=== PATIENT | male | born 1960 | race Caucasian/White ===

== ENCOUNTER 2019-10-15 21:13 | Observation (INO) | payer OTHER ==
[2019-10-15] MEDS ORDERED: Ondansetron 4 MG Tab.DIS PO ONE (21:27)
[2019-10-15] MEDS ORDERED: Acetaminophen/HYDROcodone 325-5 MG Tab PO ONE (21:28)
--- NOTE | 2019-10-15 21:44 | EDM.PDOC ---
Addendum entered and electronically signed by Hair Solano MD 10/16/19 03:02: Unable to control the pain in the emergency room. Patient is received IV hydration 6 of morphine and Toradol without relief. I discussed the case with the admitting physician Dr. Encarnacion Addendum entered and electronically signed by Hair Solano MD 10/16/19 03:01: Original Note: <Hair Solano - Last Filed: 10/16/19 00:57> ED HPI GENERAL MEDICAL PROBLEM - General Chief Complaint: Abdominal Pain Stated Complaint: BLADDER PROBLEM Time Seen by Provider: 10/15/19 21:17 - Related Data Allergies Allergy/AdvReac Type Severity Reaction Status Date / Time Sulfa (Sulfonamide Allergy Hives Verified 10/16/19 03:47 Antibiotics) tetracycline Allergy Other Verified 10/16/19 03:47 Home Meds: Home Meds atorvaSTATin [Lipitor] 20 mg PO BEDTIME 10/15/19 [History] traZODone HCl [Trazodone HCl] 50 mg PO BEDTIME 10/15/19 [History] Citalopram Hydrobromide [Celexa] 40 mg PO DAILY 10/16/19 [History] Methylphenidate HCl [Ritalin LA] 20 mg PO DAILY 10/16/19 [History] ED ROS GENERAL - Review of Systems Review Of Systems: See Below Constitutional: Reports: No Symptoms HEENT: Reports: No Symptoms Respiratory: Reports: No Symptoms Cardiovascular: Reports: No Symptoms Endocrine: Reports: No Symptoms GI/Abdominal: Reports: Abdominal Pain : Reports: No Symptoms Musculoskeletal: Reports: No Symptoms Skin: Reports: No Symptoms Neurological: Reports: No Symptoms Psychiatric: Reports: No Symptoms Hematologic/Lymphatic: Reports: No Symptoms Immunologic: Reports: No Symptoms ED EXAM, GI/ABD - Physical Exam Exam: See Below Exam Limited By: No Limitations General Appearance: Alert, WD/WN, Mild Distress Eyes: Bilateral: Normal Appearance Ears: Normal External Exam Nose: Normal Inspection, Normal Mucosa Throat/Mouth: Normal Inspection, Normal Lips Head: Atraumatic, Normocephalic Neck: Normal Inspection, Supple Respiratory/Chest: No Respiratory Distress Cardiovascular: Normal Peripheral Pulses, Regular Rate, Rhythm GI/Abdominal Exam: Normal Bowel Sounds, No Abnormal Bruit, No Mass, Tender (Male) Exam: Deferred Rectal (Males) Exam: Deferred Back Exam: Normal Inspection, Full Range of Motion Extremities: Normal Inspection, Normal Range of Motion Neurological: Alert, Oriented, CN II-XII Intact, Normal Cognition, No Motor/ Sensory Deficits Psychiatric: Normal Affect, Normal Mood Skin Exam: Warm, Dry, Intact, Normal Color Lymphatic: No Adenopathy Course - Vital Signs Text/Narrative:: Presents the emergency room with right upper quadrant pain. Patient has a history of gallbladder disease. Patient states is been hurting for 2 days with some nausea. Patient will found to have a white count of 13,000. Patient CT scan shows diverticulosis. Patient has no evidence on CT scan of gallbladder blockage. No evidence of appendicitis. Probable biliary colic Patient will be discharged home to follow-up with his surgeon Last Recorded V/S: Last Vital Signs Temp 97.9 F 10/16/19 04:03 Pulse 64 10/16/19 04:03 Resp 17 10/16/19 04:03 BP 127/64 10/16/19 04:03 Pulse Ox 98 10/16/19 04:03 - Orders/Labs/Meds Orders: Medication Orders Sodium Chloride (Normal Saline) 1,000 mls @ 125 mls/hr IV ASDIRECTED JOSEPHINE Last Admin: 10/16/19 04:54 Dose: 125 mls/hr Morphine Sulfate (Morphine) 2 mg IVPUSH Q3H PRN PRN Reason: Pain Last Admin: 10/16/19 07:24 Dose: 2 mg Ondansetron HCl (Zofran) 4 mg IVPUSH Q4H PRN PRN Reason: Nausea/Vomiting Labs: Laboratory Tests 10/15/19 10/15/19 10/15/19 Range/Units 21:28 21:40 21:40 WBC 13.47 H (4.0-11.0) K/uL RBC 4.64 (4.50-5.90) M/uL Hgb 15.3 (13.0-17.0) g/dL Hct 43.6 (38.0-50.0) % MCV 94.0 (80.0-98.0) fL MCH 33.0 H (27.0-32.0) pg MCHC 35.1 (31.0-37.0) g/dL RDW Std Deviation 44.0 (28.0-62.0) fl RDW Coeff of Miguel 13 (11.0-15.0) % Plt Count 291 (150-400) K/uL MPV 8.20 (7.40-12.00) fL Neut % (Auto) 53.6 (48.0-80.0) % Lymph % (Auto) 34.6 (16.0-40.0) % [place] % (Auto) 9.2 (0.0-15.0) % Eos % (Auto) 2.4 (0.0-7.0) % Baso % (Auto) 0.2 (0.0-1.5) % Neut # (Auto) 7.2 H (1.4-5.7) K/uL Lymph # (Auto) 4.7 H (0.6-2.4) K/uL [place] # (Auto) 1.2 H (0.0-0.8) K/uL Eos # (Auto) 0.3 (0.0-0.7) K/uL Baso # (Auto) 0.0 (0.0-0.1) K/uL Nucleated RBC % 0.0 /100WBC Nucleated RBCs # 0 K/uL Sodium 144 (136-148) mmol/L Potassium 4.0 (3.5-5.1) mmol/L Chloride 106 (98-107) mmol/L Carbon Dioxide 27.0 (21.0-32.0) mmol/L BUN 15 (7.0-18.0) mg/dL Creatinine 1.1 (0.8-1.3) mg/dL Est Cr Clr Drug Dosing 78.91 mL/min Estimated GFR (MDRD) > 60.0 ml/min Glucose 116 H (74-106) mg/dL Calcium 8.9 (8.5-10.1) mg/dL Total Bilirubin 0.4 (0.2-1.0) mg/dL AST 24 (15-37) IU/L ALT 38 (14-63) IU/L Alkaline Phosphatase 70 (46-116) U/L Total Protein 6.9 (6.4-8.2) g/dL Albumin 4.0 (3.4-5.0) g/dL Globulin 2.9 (2.6-4.0) g/dL Albumin/Globulin Ratio 1.4 (0.9-1.6) Lipase 371 (73-393) U/L Urine Color YELLOW Urine Appearance CLEAR Urine pH 6.5 (5.0-8.0) Ur Specific [place] 1.015 (1.001-1.035) Urine Protein NEGATIVE (NEGATIVE) mg/dL Urine Glucose (UA) NEGATIVE (NEGATIVE) mg/dL Urine Ketones NEGATIVE (NEGATIVE) mg/dL Urine Occult Blood NEGATIVE (NEGATIVE) Urine Nitrite NEGATIVE (NEGATIVE) Urine Bilirubin NEGATIVE (NEGATIVE) Urine Urobilinogen 0.2 (<2.0) EU/dL Ur Leukocyte Esterase NEGATIVE (NEGATIVE) Meds: Medications Generic Name Dose Route Start Last Admin Trade Name Freq PRN Reason Stop Dose Admin Sodium Chloride 1,000 mls @ 125 mls/hr 10/16/19 04:45 10/16/19 04:54 Normal Saline IV 125 mls/hr ASDIRECTED JOSEPHINE Administration Morphine Sulfate 2 mg 10/16/19 04:33 10/16/19 07:24 Morphine IVPUSH 2 mg Q3H PRN Administration Pain Ondansetron HCl 4 mg 10/16/19 04:33 Zofran IVPUSH Q4H PRN Nausea/Vomiting Discontinued Medications Generic Name Dose Route Start Last Admin Trade Name Freq PRN Reason Stop Dose Admin Hydrocodone Bitart/Acetaminophen 1 tab 10/15/19 21:28 10/15/19 21:43 [place] 325-5 Mg PO 10/15/19 21:29 1 tab ONETIME ONE Administration Sodium Chloride 1,000 mls @ 999 mls/hr 10/15/19 21:55 10/15/19 22:25 Normal Saline IV 10/15/19 22:55 999 mls/hr STAT ONE Administration Metronidazole 500 mg/ Premix 100 mls @ 100 mls/hr 10/15/19 23:35 10/15/19 23: 40 IV 10/16/19 00:34 100 mls/hr ONETIME ONE Administration Iopamidol 100 ml 10/15/19 22:32 10/15/19 22:46 [id number] (76%) IVPUSH 10/15/19 22:33 100 ml ONETIME STA Administration Ketorolac Tromethamine 30 mg 10/16/19 01:29 10/16/19 01:42 Toradol IVPUSH 10/16/19 01:30 30 mg ONETIME ONE Administration Morphine Sulfate 6 mg 10/15/19 23:25 10/15/19 23:35 Morphine IVPUSH 10/15/19 23:26 6 mg ONETIME ONE Administration Morphine Sulfate 6 mg 10/16/19 03:03 10/16/19 03:14 Morphine IVPUSH 10/16/19 03:04 6 mg ONETIME ONE Administration Nicotine 21 mg 10/16/19 02:51 10/16/19 03:11 Habitrol TRDERM 10/16/19 02:52 21 mg ONETIME ONE Administration Ondansetron HCl 4 mg 10/15/19 21:27 10/15/19 21:44 Zofran Odt PO 10/15/19 21:28 4 mg ONETIME ONE Administration Ondansetron HCl 4 mg 10/15/19 23:28 10/15/19 23:35 Zofran IVPUSH 10/15/19 23:29 4 mg ONETIME ONE Administration Departure - Departure Time of Disposition: 01:00 Disposition: Refer to Observation Condition: Good Clinical Impression: Biliary colic symptom - Discharge Information Sepsis Event Note - Focused Exam Vital Signs: Vital Signs Pulse Resp BP Pulse Ox 10/16/19 01:43 78 16 121/68 96 10/16/19 00:45 78 18 129/78 99 10/15/19 23:36 87 16 132/76 96 Date Exam was Performed: 10/16/19 Time Exam was Performed: 00:57 <Macario Hopper E - Last Filed: 10/16/19 10:09> ED HPI GENERAL MEDICAL PROBLEM - General Source of Information: Reports: Patient History Limitations: Reports: No Limitations - History of Present Illness INITIAL COMMENTS - FREE TEXT/NARRATIVE: HISTORY AND PHYSICAL: History of present illness: Patient is a 59-year-old male who presents to the emergency room with complaints of "gallbladder pain". He states around Fab[place] of this last year he was told that he needed his gallbladder removed. He has failed to set up an outpatient appointment with the general surgeon. He states this afternoon he had eaten something that caused him to have pain to his right upper quadrant. He does have some mild nausea associated with this, no vomiting. Patient denies any fever, chills, headache, change in vision, syncope or near syncope. Denies any chest pain, back pain, shortness of breath or cough. Denies any abdominal pain, nausea, vomiting, diarrhea, constipation or dysuria. Has not noted any blood in urine or stool. Patient has been eating and drinking appropriately. Review of systems: As per history of present illness and below otherwise all systems reviewed and negative. Past medical history: As per history of present illness and as reviewed below otherwise noncontributory. Surgical history: As per history of present illness and as reviewed below otherwise noncontributory. Social history: See social history for further information Family history: As per history of present illness and as reviewed below otherwise noncontributory. Physical exam: General: Well developed and well nourished 59-year-old male. Alert and oriented. Nontoxic-appearing and in no acute distress. HEENT: Atraumatic, normocephalic, pupils equal and reactive bilaterally, negative for conjunctival pallor or scleral icterus, mucous membranes moist, trachea midline. No drooling or trismus noted. No meningeal signs. No hot potato voice noted. Lungs: Clear to auscultation, breath sounds equal bilaterally, chest nontender. Heart: S1S2, regular rate and rhythm without overt murmur Abdomen: Soft, nondistended, right upper quadrant tenderness. Negative for masses or hepatosplenomegaly. Negative for costovertebral tenderness. Skin: Intact, warm, dry. No lesions or rashes noted. Extremities: Atraumatic, moves all extremities per self without difficulty or deficits, negative for cords or calf pain. Neurovascular unremarkable. Neuro: Awake, alert, oriented. Cranial nerves II through XII unremarkable. Cerebellum unremarkable. Motor and sensory unremarkable throughout. Exam nonfocal. Notes: Diagnostics have not returned. Dr Solano has agreed to accept this patient to follow his labs and disposition patient appropriately. Diagnostics: CBC, CMP, Lipase, UA, CT abd/pelvis Therapeutics: IV fluids, [place], Zofran Impression: Bilary colic Definitive disposition and diagnosis as appropriate pending reevaluation and review of above. RUQ Pain Score (Numeric/FACES): 8 Course - Orders/Labs/Meds Labs: Laboratory Tests 10/15/19 10/15/19 10/15/19 Range/Units 21:28 21:40 21:40 WBC 13.47 H (4.0-11.0) K/uL RBC 4.64 (4.50-5.90) M/uL Hgb 15.3 (13.0-17.0) g/dL Hct 43.6 (38.0-50.0) % MCV 94.0 (80.0-98.0) fL MCH 33.0 H (27.0-32.0) pg MCHC 35.1 (31.0-37.0) g/dL RDW Std Deviation 44.0 (28.0-62.0) fl RDW Coeff of Miguel 13 (11.0-15.0) % Plt Count 291 (150-400) K/uL MPV 8.20 (7.40-12.00) fL Neut % (Auto) 53.6 (48.0-80.0) % Lymph % (Auto) 34.6 (16.0-40.0) % [place] % (Auto) 9.2 (0.0-15.0) % Eos % (Auto) 2.4 (0.0-7.0) % Baso % (Auto) 0.2 (0.0-1.5) % Neut # (Auto) 7.2 H (1.4-5.7) K/uL Lymph # (Auto) 4.7 H (0.6-2.4) K/uL [place] # (Auto) 1.2 H (0.0-0.8) K/uL Eos # (Auto) 0.3 (0.0-0.7) K/uL Baso # (Auto) 0.0 (0.0-0.1) K/uL Nucleated RBC % 0.0 /100WBC Nucleated RBCs # 0 K/uL Sodium 144 (136-148) mmol/L Potassium 4.0 (3.5-5.1) mmol/L Chloride 106 (98-107) mmol/L Carbon Dioxide 27.0 (21.0-32.0) mmol/L BUN 15 (7.0-18.0) mg/dL Creatinine 1.1 (0.8-1.3) mg/dL Est Cr Clr Drug Dosing 78.91 mL/min Estimated GFR (MDRD) > 60.0 ml/min Glucose 116 H (74-106) mg/dL Calcium 8.9 (8.5-10.1) mg/dL Total Bilirubin 0.4 (0.2-1.0) mg/dL AST 24 (15-37) IU/L ALT 38 (14-63) IU/L Alkaline Phosphatase 70 (46-116) U/L Total Protein 6.9 (6.4-8.2) g/dL Albumin 4.0 (3.4-5.0) g/dL Globulin 2.9 (2.6-4.0) g/dL Albumin/Globulin Ratio 1.4 (0.9-1.6) Lipase 371 (73-393) U/L Urine Color YELLOW Urine Appearance CLEAR Urine pH 6.5 (5.0-8.0) Ur Specific [place] 1.015 (1.001-1.035) Urine Protein NEGATIVE (NEGATIVE) mg/dL Urine Glucose (UA) NEGATIVE (NEGATIVE) mg/dL Urine Ketones NEGATIVE (NEGATIVE) mg/dL Urine Occult Blood NEGATIVE (NEGATIVE) Urine Nitrite NEGATIVE (NEGATIVE) Urine Bilirubin NEGATIVE (NEGATIVE) Urine Urobilinogen 0.2 (<2.0) EU/dL Ur Leukocyte Esterase NEGATIVE (NEGATIVE) Meds: Medications Generic Name Dose Route Start Last Admin Trade Name Margaritoq PRN Reason Stop Dose Admin Sodium Chloride 1,000 mls @ 125 mls/hr 10/16/19 04:45 10/16/19 04:54 Normal Saline IV 125 mls/hr ASDIRECTED JOSEPHINE Administration Morphine Sulfate 2 mg 10/16/19 04:33 10/16/19 07:24 Morphine IVPUSH 2 mg Q3H PRN Administration Pain Ondansetron HCl 4 mg 10/16/19 04:33 Zofran IVPUSH Q4H PRN Nausea/Vomiting Discontinued Medications Generic Name Dose Route Start Last Admin Trade Name Titus PRN Reason Stop Dose Admin Hydrocodone Bitart/Acetaminophen 1 tab 10/15/19 21:28 10/15/19 21:43 [place] 325-5 Mg PO 10/15/19 21:29 1 tab ONETIME ONE Administration Sodium Chloride 1,000 mls @ 999 mls/hr 10/15/19 21:55 10/15/19 22:25 Normal Saline IV 10/15/19 22:55 999 mls/hr STAT ONE Administration Metronidazole 500 mg/ Premix 100 mls @ 100 mls/hr 10/15/19 23:35 10/15/19 23: 40 IV 10/16/19 00:34 100 mls/hr ONETIME ONE Administration Iopamidol 100 ml 10/15/19 22:32 10/15/19 22:46 Isovue-370 (76%) IVPUSH 10/15/19 22:33 100 ml ONETIME STA Administration Ketorolac Tromethamine 30 mg 10/16/19 01:29 10/16/19 01:42 Toradol IVPUSH 10/16/19 01:30 30 mg ONETIME ONE Administration Morphine Sulfate 6 mg 10/15/19 23:25 10/15/19 23:35 Morphine IVPUSH 10/15/19 23:26 6 mg ONETIME ONE Administration Morphine Sulfate 6 mg 10/16/19 03:03 10/16/19 03:14 Morphine IVPUSH 10/16/19 03:04 6 mg ONETIME ONE Administration Nicotine 21 mg 10/16/19 02:51 10/16/19 03:11 Habitrol TRDERM 10/16/19 02:52 21 mg ONETIME ONE Administration Ondansetron HCl 4 mg 10/15/19 21:27 10/15/19 21:44 Zofran Odt PO 10/15/19 21:28 4 mg ONETIME ONE Administration Ondansetron HCl 4 mg 10/15/19 23:28 10/15/19 23:35 Zofran IVPUSH 10/15/19 23:29 4 mg ONETIME ONE Administration Sepsis Event Note - Evaluation Sepsis Screening Result: No Definite Risk - Focused Exam Date Exam was Performed: 10/16/19 Time Exam was Performed: 10:07
[2019-10-15] MEDS ORDERED: Sodium Chloride 0.9% 1,000 ML IV ONE (21:55)
[2019-10-15 22:15] LABS: BLOOD UREA NITROGEN,BUN 15 mg/dL (7.0-18.0); CHLORIDE,CL 106 mmol/L (98-107); GLUCOSE RANDOM 116 mg/dL (74-106); LIPASE 371 U/L (73-393); SODIUM,NA 144 mmol/L (136-148)
[2019-10-15] MEDS ORDERED: Iopamidol 755 Mg/ML 100 ML Bottle IVPUSH STA (22:32)
--- NOTE | 2019-10-15 23:11 | CT ---
HISTORY: Right upper quadrant pain. TECHNIQUE: CT abdomen and pelvis with IV contrast. COMPARISON: None. FINDINGS: Abdomen: No liver lesions. No bile duct dilation. Gallbladder is mostly collapsed. No pancreatic mass or pancreatic duct dilation. No spleen lesions. No adrenal nodules. Kidneys enhance symmetrically. 3.5 cm right renal cyst. No hydronephrosis. No dilated bowel. Colonic diverticulosis. No pericolonic inflammatory change. Appendix is normal. No free fluid. No lymphadenopathy. Moderate atherosclerosis. Celiac, SMA, SCARLETT, and renal arteries are patent. Abdominal aorta is normal caliber. Pelvis: No lymphadenopathy. Musculoskeletal: Degenerative changes of the spine greatest at L5-S1. Lower chest: Unremarkable. IMPRESSION: 1. No acute abnormality in the abdomen or pelvis. 2. Colonic diverticulosis without acute diverticulitis. Please note that all CT scans at this facility use dose modulation, iterative reconstruction, and/or weight-based dosing when appropriate to reduce radiation dose to as low as reasonably achievable. Dictated by Serge Hughes MD @ Oct 15 2019 11:02PM Signed by Dr. Serge Hughes @ Oct 15 2019 11:10PM
[2019-10-15] MEDS ORDERED: Morphine 10 MG/ML Syringe IVPUSH ONE (23:25)
[2019-10-15] MEDS ORDERED: Ondansetron 4 MG/2 ML SDV IVPUSH ONE (23:28)
[2019-10-15] MEDS ORDERED: metroNIDAZOLE/Normal Saline 500 MG in Premix Bag 1 BAG IV ONE (23:35)
[2019-10-16] MEDS ORDERED: Ketorolac 30 MG/ML SDV IVPUSH ONE (01:29)
[2019-10-16] MEDS ORDERED: Nicotine 21 MG/24 Hr Patch TRDERM ONE (02:51)
[2019-10-16] MEDS ORDERED: Morphine 10 MG/ML Syringe IVPUSH ONE (03:03)
[2019-10-16] MEDS: Sodium Chloride 0.9% 1,000 ML IV SCH ×3 (04:54→22:45)
[2019-10-16] MEDS: Morphine 2 MG/ML Syringe IVPUSH PRN ×4 (07:24→20:58)
[2019-10-16] MEDS ORDERED: Morphine 2 MG/ML Syringe IVPUSH PRN (10:06)
--- NOTE | 2019-10-16 10:12 | PCM.HP.2 ---
H&P History of Present Illness - General Date of Service: 10/16/19 Admit Problem/Dx: Admission Diagnosis/Problem Admission Diagnosis/Problem Abdominal pain in male - History of Present Illness Initial Comments - Free Text/Narative: 59 yo male who presents with one day history of right upper quadrant pain. He reports associate symptoms of nausea and vomiting. He denies any fevers or chills. The last time he had symptoms like this he was driving home but had to stop in [place] where it took several days to resolve. He reports following up in [facility] were he was told he had sludge in his gallbladder and was advised to have a cholecystectomy. He RUQ Pain Score (Numeric/FACES): 8 - Related Data Allergies/Adverse Reactions: Allergies Allergy/AdvReac Type Severity Reaction Status Date / Time Sulfa (Sulfonamide Allergy Hives Verified 10/16/19 03:47 Antibiotics) tetracycline Allergy Other Verified 10/16/19 03:47 Home Medications: Home Meds atorvaSTATin [Lipitor] 20 mg PO BEDTIME 10/15/19 [History] traZODone HCl [Trazodone HCl] 50 mg PO BEDTIME 10/15/19 [History] Citalopram Hydrobromide [Celexa] 40 mg PO DAILY 10/16/19 [History] Methylphenidate HCl [Ritalin LA] 20 mg PO DAILY 10/16/19 [History] Past Medical History HEENT History: Reports: None Cardiovascular History: Reports: High Cholesterol Respiratory History: Reports: None Gastrointestinal History: Reports: Hepatitis, Hiatal Hernia, Other (See Below) Other Gastrointestinal History: Gall bladder "sludge". Hepatitis C with spontaneous cured Genitourinary History: Reports: None Musculoskeletal History: Reports: None Neurological History: Reports: None Psychiatric History: Reports: ADHD, Depression, PTSD Endocrine/Metabolic History: Reports: None Hematologic History: Reports: None Immunologic History: Reports: None Oncologic (Cancer) History: Reports: None Dermatologic History: Reports: None - Infectious Disease History Infectious Disease History: Reports: Hepatitis C - Past Surgical History Head Surgeries/Procedures: Reports: None GI Surgical History: Reports: Hernia Repair/Other Social & Family History - Family History Family Medical History: Noncontributory - Tobacco Use Smoking Status *Q: Current Every Day Smoker Years of Tobacco use: 40 Packs/Tins Daily: 1.5 - Recreational Drug Use Recreational Drug Use: No H&P Review of Systems - Review of Systems: Review Of Systems: Comprehensive ROS is negative, except as noted in HPI. Exam - Exam Exam: See Below - Vital Signs Vital Signs: Last Vital Signs Temp 36.6 C 10/16/19 04:03 Pulse 64 10/16/19 04:03 Resp 17 10/16/19 04:03 BP 127/64 10/16/19 04:03 Pulse Ox 98 10/16/19 04:03 Weight: 85.7 kg - Exam General: Alert, Oriented HEENT: Mucosa Moist & [place] Neck: Supple, Trachea Midline Lungs: Clear to Auscultation, Normal Respiratory Effort Cardiovascular: Regular Rate, Regular Rhythm GI/Abdominal Exam: Normal Bowel Sounds, Soft, Non-Tender Extremities: Normal Inspection, Non-Tender, No Pedal Edema Skin: Warm, Dry, Intact - Patient Data Lab Results Last 24 hrs: Laboratory Results - last 24 hr 10/15/19 10/15/19 10/15/19 Range/Units 21:28 21:40 21:40 WBC 13.47 H (4.0-11.0) K/uL RBC 4.64 (4.50-5.90) M/uL Hgb 15.3 (13.0-17.0) g/dL Hct 43.6 (38.0-50.0) % MCV 94.0 (80.0-98.0) fL MCH 33.0 H (27.0-32.0) pg MCHC 35.1 (31.0-37.0) g/dL RDW Std Deviation 44.0 (28.0-62.0) fl RDW Coeff of Miguel 13 (11.0-15.0) % Plt Count 291 (150-400) K/uL MPV 8.20 (7.40-12.00) fL Neut % (Auto) 53.6 (48.0-80.0) % Lymph % (Auto) 34.6 (16.0-40.0) % [place] % (Auto) 9.2 (0.0-15.0) % Eos % (Auto) 2.4 (0.0-7.0) % Baso % (Auto) 0.2 (0.0-1.5) % Neut # (Auto) 7.2 H (1.4-5.7) K/uL Lymph # (Auto) 4.7 H (0.6-2.4) K/uL [place] # (Auto) 1.2 H (0.0-0.8) K/uL Eos # (Auto) 0.3 (0.0-0.7) K/uL Baso # (Auto) 0.0 (0.0-0.1) K/uL Nucleated RBC % 0.0 /100WBC Nucleated RBCs # 0 K/uL Sodium 144 (136-148) mmol/L Potassium 4.0 (3.5-5.1) mmol/L Chloride 106 (98-107) mmol/L Carbon Dioxide 27.0 (21.0-32.0) mmol/L BUN 15 (7.0-18.0) mg/dL Creatinine 1.1 (0.8-1.3) mg/dL Est Cr Clr Drug Dosing 78.91 mL/min Estimated GFR (MDRD) > 60.0 ml/min Glucose 116 H (74-106) mg/dL Calcium 8.9 (8.5-10.1) mg/dL Total Bilirubin 0.4 (0.2-1.0) mg/dL AST 24 (15-37) IU/L ALT 38 (14-63) IU/L Alkaline Phosphatase 70 (46-116) U/L Total Protein 6.9 (6.4-8.2) g/dL Albumin 4.0 (3.4-5.0) g/dL Globulin 2.9 (2.6-4.0) g/dL Albumin/Globulin Ratio 1.4 (0.9-1.6) Lipase 371 (73-393) U/L Urine Color YELLOW Urine Appearance CLEAR Urine pH 6.5 (5.0-8.0) Ur Specific [place] 1.015 (1.001-1.035) Urine Protein NEGATIVE (NEGATIVE) mg/dL Urine Glucose (UA) NEGATIVE (NEGATIVE) mg/dL Urine Ketones NEGATIVE (NEGATIVE) mg/dL Urine Occult Blood NEGATIVE (NEGATIVE) Urine Nitrite NEGATIVE (NEGATIVE) Urine Bilirubin NEGATIVE (NEGATIVE) Urine Urobilinogen 0.2 (<2.0) EU/dL Ur Leukocyte Esterase NEGATIVE (NEGATIVE) Result Diagrams: 10/16/19 13:05 10/16/19 13:05 Sepsis Event Note - Evaluation Sepsis Screening Result: No Definite Risk - Focused Exam Vital Signs: Vital Signs Temp Pulse Resp BP Pulse Ox 10/16/19 04:03 36.6 C 64 17 127/64 98 10/16/19 03:17 75 16 120/74 97 10/16/19 01:43 78 16 121/68 96 10/16/19 00:45 78 18 129/78 99 10/15/19 23:36 87 16 132/76 96 Date Exam was Performed: 10/16/19 Time Exam was Performed: 13:51 Problem List Initiated/Reviewed/Updated: Yes Orders Last 24hrs: Active Orders 24 hr Category Date Time Status Admission Status [Patient Status] [ADT] Stat ADT 10/16/19 03:04 Active Antiembolic Devices [RC] PER UNIT ROUTINE Care 10/16/19 10:07 Active Oxygen Therapy [RC] PRN Care 10/16/19 10:06 Active Up ad Kandice [RC] ASDIRECTED Care 10/16/19 10:06 Active VTE/DVT Education [RC] PER UNIT ROUTINE Care 10/16/19 10:06 Active Vital Signs [RC] Q4H Care 10/16/19 10:06 Active Clear Liquid Diet [DIET] Diet 10/16/19 Breakfast Active CBC WITH AUTO DIFF [HEME] Routine Lab 10/16/19 13:00 Ordered COMPREHENSIVE METABOLIC PN,CMP [CHEM] Routine Lab 10/16/19 13:00 Ordered Ciprofloxacin in D5W [Cipro in D5W 400 MG/200 ML] 400 Med 10/16/19 10:15 Ordered mg Premix Bag 1 bag IV Q12H Citalopram Hydrobromide [Celexa] Med 10/17/19 09:00 Ordered 40 mg PO DAILY Morphine Med 10/16/19 04:33 Active 2 mg IVPUSH Q3H PRN Morphine Med 10/16/19 10:06 Ordered 2 mg IVPUSH Q3H PRN Ondansetron [Zofran] Med 10/16/19 04:33 Active 4 mg IVPUSH Q4H PRN Sodium Chloride 0.9% [Normal Saline] 1,000 ml Med 10/16/19 04:45 Active IV ASDIRECTED atorvaSTATin [Lipitor] Med 10/16/19 21:00 Ordered 20 mg PO BEDTIME metroNIDAZOLE/Normal Saline [Flagyl 500 MG in NS 100 ML Med 10/16/19 12:00 Ordered ] 500 mg Premix Bag 1 bag IV QID oxyCODONE Med 10/16/19 10:06 Ordered 5 mg PO Q4H PRN traZODone Med 10/16/19 21:00 Ordered 50 mg PO BEDTIME Sequential Compression Device [OM.PC] Per Unit Routine Oth 10/16/19 10:06 Ordered Resuscitation Status Routine Resus Stat 10/16/19 10:06 Ordered Medication Orders Atorvastatin Calcium (Lipitor) 20 mg PO BEDTIME JOSEPHINE Sodium Chloride (Normal Saline) 1,000 mls @ 125 mls/hr IV ASDIRECTED [facility] Last Admin: 10/16/19 04:54 Dose: 125 mls/hr Ciprofloxacin/Dextrose 400 mg/ (Premix) 200 mls @ 200 mls/hr IV Q12H [facility] Metronidazole 500 mg/ Premix 100 mls @ 100 mls/hr IV QID [facility] Morphine Sulfate (Morphine) 2 mg IVPUSH Q3H PRN PRN Reason: Pain Last Admin: 10/16/19 07:24 Dose: 2 mg Morphine Sulfate (Morphine) 2 mg IVPUSH Q3H PRN PRN Reason: Pain (severe 7-10) Stop: 10/17/19 10:06 Non-Formulary Medication (Citalopram Hydrobromide [Celexa]) 40 mg PO DAILY [facility] Ondansetron HCl (Zofran) 4 mg IVPUSH Q4H PRN PRN Reason: Nausea/Vomiting Oxycodone HCl (Oxycodone) 5 mg PO Q4H PRN PRN Reason: Pain (moderate 4-6) Trazodone HCl (Trazodone) 50 mg PO BEDTIME [facility] Assessment/Plan Comment:: 59 yo male admitted for RUQ quadrant pain, concerning for possible acute cholecystitis. CT scan of abdomen is normal. We will check RUQ abdominal ultrasound and treat with Ciprofloxacin and Flagyl.
[2019-10-16] MEDS: Ciprofloxacin in D5W 400 MG in Premix Bag 1 BAG IV SCH ×4 (10:38→22:35)
[2019-10-16] MEDS: Ondansetron 4 MG/2 ML SDV IVPUSH PRN (10:38)
[2019-10-16] MEDS: metroNIDAZOLE/Normal Saline 500 MG in Premix Bag 1 BAG IV SCH ×2 (12:14→18:30)
[2019-10-16] MEDS: oxyCODONE 5 MG Tab PO PRN ×3 (12:20→22:42)
[2019-10-16 13:38] LABS: BLOOD UREA NITROGEN,BUN 16 mg/dL (7.0-18.0); CARBON DIOXIDE,CO2 25.8 mmol/L (21.0-32.0); CHLORIDE,CL 107 mmol/L (98-107); GLUCOSE RANDOM 144 mg/dL (74-106); POTASSIUM,K 3.7 mmol/L (3.5-5.1); SODIUM,NA 140 mmol/L (136-148)
[2019-10-16] MEDS: atorvaSTATin 20 MG Tab PO SCH (20:57)
[2019-10-16] MEDS: traZODone 50 MG Tab PO SCH (20:57)
[2019-10-17] MEDS: metroNIDAZOLE/Normal Saline 500 MG in Premix Bag 1 BAG IV SCH ×4 (00:19→19:03)
[2019-10-17] MEDS: oxyCODONE 5 MG Tab PO PRN ×4 (05:38→20:15)
[2019-10-17 06:05] LABS: BLOOD UREA NITROGEN,BUN 11 mg/dL (7.0-18.0); CARBON DIOXIDE,CO2 29.5 mmol/L (21.0-32.0); CHLORIDE,CL 111 mmol/L (98-107); GLUCOSE RANDOM 85 mg/dL (74-106); POTASSIUM,K 4.6 mmol/L (3.5-5.1); SODIUM,NA 145 mmol/L (136-148)
[2019-10-17] MEDS: Citalopram 20 MG Tab PO SCH (09:11)
[2019-10-17] MEDS: Sodium Chloride 0.9% 1,000 ML IV SCH ×2 (09:38→20:17)
[2019-10-17] MEDS: Ciprofloxacin in D5W 400 MG in Premix Bag 1 BAG IV SCH ×4 (10:45→22:15)
--- NOTE | 2019-10-17 11:23 | US ---
Limited abdominal ultrasound: Multiple real-time images of the upper right abdomen were obtained. Comparison: Prior CT abdomen and pelvis exam of 10/15/19. Findings: Liver shows no focal parenchymal abnormality. Cyst is noted within the mid to upper right kidney is seen measuring 3.6 cm which is noted on prior CT exam. Small abnormality is noted within the gallbladder measuring 7 mm either due to adherent sludge ball or polyp. No shadowing cholelithiasis is seen within the gallbladder. No gallbladder wall thickening or biliary duct dilatation is seen. Visualized portions of the pancreas appear within normal limits. Right kidney shows no hydronephrosis. Right kidney has a length of 13.8 cm. Impression: 1. 7 mm finding within the gallbladder either due to adherent sludge ball or gallbladder polyp. 2. Cyst within the mid to upper right kidney. 3. Other portions of the right upper quadrant abdominal ultrasound appear unremarkable. Diagnostic code #2 This report was dictated in [place] Standard Time
[2019-10-17] MEDS: Ondansetron 4 MG/2 ML SDV IVPUSH PRN (11:33)
[2019-10-17] MEDS: Morphine 2 MG/ML Syringe IVPUSH PRN ×3 (12:35→22:02)
--- NOTE | 2019-10-17 12:55 | PCM.PN ---
- General Info Date of Service: 10/17/19 Admission Dx/Problem (Free Text): Admission Diagnosis/Problem Admission Diagnosis/Problem Abdominal pain in male Subjective Update: Continues to have RUQ pain, 5/10 this morning. No ches tpain or SOB. No nausea. Awaiting RUQ US results. Asking to eat more if possible Functional Status: Reports: Ambulating, Urinating. Denies: Pain Controlled - Review of Systems General: Reports: No Symptoms HEENT: Reports: No Symptoms Pulmonary: Reports: No Symptoms. Denies: Shortness of Breath Cardiovascular: Reports: No Symptoms. Denies: Chest Pain Gastrointestinal: Reports: Abdominal Pain (RUQ). Denies: Nausea, Vomiting Genitourinary: Reports: No Symptoms. Denies: Dysuria Neurological: Reports: No Symptoms Psychiatric: Reports: No Symptoms - Patient Data Vitals - Most Recent: Last Vital Signs Temp 97.6 F 10/17/19 08:00 Pulse 64 10/17/19 08:00 Resp 18 10/17/19 08:00 BP 115/65 10/17/19 08:00 Pulse Ox 96 10/17/19 10:06 Weight - Most Recent: 85.7 kg I&O - Last 24 Hours: Intake & Output 10/16/19 10/17/19 10/17/19 22:59 06:59 14:59 Intake Total 1372 2847 Output Total 1575 Balance 1372 1272 Lab Results Last 24 Hours: Laboratory Results - last 24 hr 10/16/19 10/16/19 10/17/19 Range/Units 13:05 13:05 05:30 WBC 13.29 H 7.94 (4.0-11.0) K/uL RBC 4.28 L 4.36 L (4.50-5.90) M/uL Hgb 13.8 14.0 (13.0-17.0) g/dL Hct 39.8 41.4 (38.0-50.0) % MCV 93.0 95.0 (80.0-98.0) fL MCH 32.2 H 32.1 H (27.0-32.0) pg MCHC 34.7 33.8 (31.0-37.0) g/dL RDW Std Deviation 42.1 44.4 (28.0-62.0) fl RDW Coeff of Miguel 13 13 (11.0-15.0) % Plt Count 242 222 (150-400) K/uL MPV 8.10 8.00 (7.40-12.00) fL Neut % (Auto) 75.0 48.1 (48.0-80.0) % Lymph % (Auto) 18.7 41.8 H (16.0-40.0) % [place] % (Auto) 5.4 7.4 (0.0-15.0) % Eos % (Auto) 0.8 2.4 (0.0-7.0) % Baso % (Auto) 0.1 0.3 (0.0-1.5) % Neut # (Auto) 10.0 H 3.8 (1.4-5.7) K/uL Lymph # (Auto) 2.5 H 3.3 H (0.6-2.4) K/uL [place] # (Auto) 0.7 0.6 (0.0-0.8) K/uL Eos # (Auto) 0.1 0.2 (0.0-0.7) K/uL Baso # (Auto) 0.0 0.0 (0.0-0.1) K/uL Nucleated RBC % 0.0 0.0 /100WBC Nucleated RBCs # 0 0 K/uL Sodium 140 (136-148) mmol/L Potassium 3.7 (3.5-5.1) mmol/L Chloride 107 (98-107) mmol/L Carbon Dioxide 25.8 (21.0-32.0) mmol/L BUN 16 (7.0-18.0) mg/dL Creatinine 0.9 (0.8-1.3) mg/dL Est Cr Clr Drug Dosing 96.45 mL/min Estimated GFR (MDRD) > 60.0 ml/min Glucose 144 H (74-106) mg/dL Calcium 8.5 (8.5-10.1) mg/dL Total Bilirubin 0.4 (0.2-1.0) mg/dL AST 16 (15-37) IU/L ALT 31 (14-63) IU/L Alkaline Phosphatase 61 (46-116) U/L Total Protein 5.9 L (6.4-8.2) g/dL Albumin 3.3 L (3.4-5.0) g/dL Globulin 2.6 (2.6-4.0) g/dL Albumin/Globulin Ratio 1.3 (0.9-1.6) 10/17/19 Range/Units 05:30 WBC (4.0-11.0) K/uL RBC (4.50-5.90) M/uL Hgb (13.0-17.0) g/dL Hct (38.0-50.0) % MCV (80.0-98.0) fL MCH (27.0-32.0) pg MCHC (31.0-37.0) g/dL RDW Std Deviation (28.0-62.0) fl RDW Coeff of Miguel (11.0-15.0) % Plt Count (150-400) K/uL MPV (7.40-12.00) fL Neut % (Auto) (48.0-80.0) % Lymph % (Auto) (16.0-40.0) % [place] % (Auto) (0.0-15.0) % Eos % (Auto) (0.0-7.0) % Baso % (Auto) (0.0-1.5) % Neut # (Auto) (1.4-5.7) K/uL Lymph # (Auto) (0.6-2.4) K/uL [place] # (Auto) (0.0-0.8) K/uL Eos # (Auto) (0.0-0.7) K/uL Baso # (Auto) (0.0-0.1) K/uL Nucleated RBC % /100WBC Nucleated RBCs # K/uL Sodium 145 (136-148) mmol/L Potassium 4.6 (3.5-5.1) mmol/L Chloride 111 H (98-107) mmol/L Carbon Dioxide 29.5 (21.0-32.0) mmol/L BUN 11 (7.0-18.0) mg/dL Creatinine 1.0 (0.8-1.3) mg/dL Est Cr Clr Drug Dosing 86.80 mL/min Estimated GFR (MDRD) > 60.0 ml/min Glucose 85 (74-106) mg/dL Calcium 8.0 L (8.5-10.1) mg/dL Total Bilirubin 0.5 (0.2-1.0) mg/dL AST 16 (15-37) IU/L ALT 33 (14-63) IU/L Alkaline Phosphatase 56 (46-116) U/L Total Protein 5.4 L (6.4-8.2) g/dL Albumin 2.9 L (3.4-5.0) g/dL Globulin 2.5 L (2.6-4.0) g/dL Albumin/Globulin Ratio 1.2 (0.9-1.6) Med Orders - Current: Current Medications Atorvastatin Calcium (Lipitor) 20 mg PO BEDTIME [facility] Last Admin: 10/16/19 20:57 Dose: 20 mg Citalopram Hydrobromide (Celexa) 40 mg PO DAILY [facility] Last Admin: 10/17/19 09:11 Dose: 40 mg Sodium Chloride (Normal Saline) 1,000 mls @ 125 mls/hr IV ASDIRECTED [facility] Last Admin: 10/17/19 09:38 Dose: 125 mls/hr Ciprofloxacin/Dextrose 400 mg/ (Premix) 200 mls @ 200 mls/hr IV Q12H [facility] Last Admin: 10/17/19 10:45 Dose: 200 mls/hr Metronidazole 500 mg/ Premix 100 mls @ 100 mls/hr IV QID [facility] Last Admin: 10/17/19 12:37 Dose: 100 mls/hr Morphine Sulfate (Morphine) 2 mg IVPUSH Q3H PRN PRN Reason: Pain Last Admin: 10/17/19 12:35 Dose: 2 mg Ondansetron HCl (Zofran) 4 mg IVPUSH Q4H PRN PRN Reason: Nausea/Vomiting Last Admin: 10/17/19 11:33 Dose: 4 mg Oxycodone HCl (Oxycodone) 5 mg PO Q4H PRN PRN Reason: Pain (moderate 4-6) Last Admin: 10/17/19 09:10 Dose: 5 mg Trazodone HCl (Trazodone) 50 mg PO BEDTIME [facility] Last Admin: 10/16/19 20:57 Dose: 50 mg Discontinued Medications Hydrocodone Bitart/Acetaminophen ([place] 325-5 Mg) 1 tab PO ONETIME ONE Stop: 10/15/19 21:29 Last Admin: 10/15/19 21:43 Dose: 1 tab Sodium Chloride (Normal Saline) 1,000 mls @ 999 mls/hr IV STAT ONE Stop: 10/15/19 22:55 Last Admin: 10/15/19 22:25 Dose: 999 mls/hr Metronidazole 500 mg/ Premix 100 mls @ 100 mls/hr IV ONETIME ONE Stop: 10/16/19 00:34 Last Admin: 10/15/19 23:40 Dose: 100 mls/hr Iopamidol (Isovue-370 (76%)) 100 ml IVPUSH ONETIME STA Stop: 10/15/19 22:33 Last Admin: 10/15/19 22:46 Dose: 100 ml Ketorolac Tromethamine (Toradol) 30 mg IVPUSH ONETIME ONE Stop: 10/16/19 01:30 Last Admin: 10/16/19 01:42 Dose: 30 mg Morphine Sulfate (Morphine) 6 mg IVPUSH ONETIME ONE Stop: 10/15/19 23:26 Last Admin: 10/15/19 23:35 Dose: 6 mg Morphine Sulfate (Morphine) 6 mg IVPUSH ONETIME ONE Stop: 10/16/19 03:04 Last Admin: 10/16/19 03:14 Dose: 6 mg Morphine Sulfate (Morphine) 2 mg IVPUSH Q3H PRN PRN Reason: Pain (severe 7-10) Stop: 10/17/19 10:06 Nicotine (Habitrol) 21 mg TRDERM ONETIME ONE Stop: 10/16/19 02:52 Last Admin: 10/16/19 03:11 Dose: 21 mg Ondansetron HCl (Zofran Odt) 4 mg PO ONETIME ONE Stop: 10/15/19 21:28 Last Admin: 10/15/19 21:44 Dose: 4 mg Ondansetron HCl (Zofran) 4 mg IVPUSH ONETIME ONE Stop: 10/15/19 23:29 Last Admin: 10/15/19 23:35 Dose: 4 mg - Exam General: Alert, Oriented, Cooperative Lungs: Clear to Auscultation, Normal Respiratory Effort Cardiovascular: Regular Rate, Regular Rhythm GI/Abdominal Exam: Normal Bowel Sounds, Soft, Tender (RUQ) Extremities: Normal Inspection, Normal Range of Motion, Non-Tender, No Pedal Edema Neurological: No New Focal Deficit, Cranial Nerves Intact Psy/Mental Status: Alert, Normal Affect, Normal Mood Sepsis Event Note - Evaluation Sepsis Screening Result: No Definite Risk - Focused Exam Vital Signs: Vital Signs Temp Pulse Resp BP Pulse Ox Pulse Ox 10/17/19 10:06 96 10/17/19 08:00 97.6 F 64 18 115/65 94 L 10/17/19 03:58 97.5 F 62 18 108/68 96 Date Exam was Performed: 10/17/19 Time Exam was Performed: 12:46 - Problem List & Annotations (1) Biliary colic symptom SNOMED Code(s): 28031643 Code(s): K80.50 - CALCULUS OF BILE DUCT W/O CHOLANGITIS OR CHOLECYST W/O OBST Status: Acute Current Visit: Yes - Problem List Review Problem List Initiated/Reviewed/Updated: Yes - My Orders Last 24 Hours: My Active Orders 10/17/19 11:31 Notify Provider Consults [RC] ASDIRECTED Consult to Physician [CONS] Routine - Plan Plan:: 59 yo male admitted for RUQ quadrant pain, concerning for possible acute cholecystitis. 1. RUQ pain, suspected biliary colic or dyspkinesia - CT scan of abdomen is normal - RUQ abdominal ultrasound reveals sludge or polyp - Continue Ciprofloxacin and Flagyl IV, leukocytosis resolved this morning - Dr Muñoz consulted, plan for surgery tomorrow. NPO after midnight. - Continue IVFs overnight. Diet: CL, NPO after midnight VTE prophylaxis: SCDs Consults: Dr Muñoz CODE Status: Full Code Disposition: 2 days
--- NOTE | 2019-10-17 13:55 | PCM.CONS ---
H&P History of Present Illness - General Date of Service: 10/17/19 Admit Problem/Dx: Admission Diagnosis/Problem Admission Diagnosis/Problem Abdominal pain in male Source of Information: Patient History Limitations: Reports: No Limitations - History of Present Illness Initial Comments - Free Text/Narative: Patient is a 59-year-old male who presented the emergency room with severe right upper quadrant pain 2 days ago. He started having intermittent pain after [place] this past year. He underwent a workup that showed biliary sludge. He saw a surgeon at an outside hospital who recommended cholecystectomy. The patient was afraid of the risks of surgery and decided to not undergo the procedure. He states that he had nausea vomiting fever chills and body aches throughout September and attributed that to a GI bug. 2 days ago he developed sharp right upper quadrant pain but did not subside. Yesterday he made himself nothing by mouth but the pain continued to get more more severe. He presented the emergency room. His vital signs are stable. He was found to have a leukocytosis of 13,00. CT scan of the abdomen pelvis showed no evidence of acute cholecystitis. The attempts to control his pain with medications in the er but were unable to. He was admitted to the medicine team for further workup. He was kept nothing by mouth given IV fluids and IV antibiotics. Ultrasound showed evidence of sludge or a small gallbladder polyp but no signs of acute cholecystitis. With IV pain meds his pain has been under better control. This morning he is pain-free. His vital signs are stable. RUQ Pain Score (Numeric/FACES): 8 - Related Data Allergies/Adverse Reactions: Allergies Allergy/AdvReac Type Severity Reaction Status Date / Time Sulfa (Sulfonamide Allergy Hives Verified 10/17/19 19:08 Antibiotics) tetracycline Allergy Other Verified 10/17/19 19:08 Home Medications: Home Meds atorvaSTATin [Lipitor] 20 mg PO BEDTIME 10/15/19 [History] traZODone HCl [Trazodone HCl] 50 mg PO BEDTIME 10/15/19 [History] Citalopram Hydrobromide [Celexa] 40 mg PO DAILY 10/16/19 [History] Methylphenidate HCl [Ritalin LA] 20 mg PO DAILY 10/16/19 [History] Past Medical History HEENT History: Reports: None Cardiovascular History: Reports: High Cholesterol Respiratory History: Reports: None Gastrointestinal History: Reports: Hepatitis, Hiatal Hernia, Other (See Below) Other Gastrointestinal History: Gall bladder "sludge". Hepatitis C with spontaneous cured Genitourinary History: Reports: None Musculoskeletal History: Reports: None Neurological History: Reports: None Psychiatric History: Reports: ADHD, Depression, PTSD Endocrine/Metabolic History: Reports: None Hematologic History: Reports: None Immunologic History: Reports: None Oncologic (Cancer) History: Reports: None Dermatologic History: Reports: None - Infectious Disease History Infectious Disease History: Reports: Hepatitis C - Past Surgical History Head Surgeries/Procedures: Reports: None GI Surgical History: Reports: Hernia Repair/Other Social & Family History - Family History Family Medical History: Noncontributory - Tobacco Use Smoking Status *Q: Current Every Day Smoker Years of Tobacco use: 40 Packs/Tins Daily: 1.5 - Recreational Drug Use Recreational Drug Use: No H&P Review of Systems - Review of Systems: Review Of Systems: Comprehensive ROS is negative, except as noted in HPI. Exam - Exam Exam: See Below - Vital Signs Vital Signs: Last Vital Signs Temp 36.3 C 10/17/19 12:00 Pulse 65 10/17/19 12:00 Resp 18 10/17/19 12:00 BP 119/73 10/17/19 12:00 Pulse Ox 95 10/17/19 12:00 Weight: 85.7 kg - Exam General: Alert, Oriented HEENT: Conjunctiva Clear, Mucosa Moist & [place], Posterior Pharynx Clear Neck: Supple, Trachea Midline Lungs: Clear to Auscultation, Normal Respiratory Effort Cardiovascular: Regular Rate, Regular Rhythm GI/Abdominal Exam: Soft, Non-Tender, No Distention, No Mass, Hernia (umbilical) , Other (well healed incision along infra-umbilical fold) Back Exam: Normal Inspection, Full Range of Motion Extremities: Normal Inspection - Patient Data Lab Results Last 24 hrs: Laboratory Results - last 24 hr 10/17/19 10/17/19 Range/Units 05:30 05:30 WBC 7.94 (4.0-11.0) K/uL RBC 4.36 L (4.50-5.90) M/uL Hgb 14.0 (13.0-17.0) g/dL Hct 41.4 (38.0-50.0) % MCV 95.0 (80.0-98.0) fL MCH 32.1 H (27.0-32.0) pg MCHC 33.8 (31.0-37.0) g/dL RDW Std Deviation 44.4 (28.0-62.0) fl RDW Coeff of Miguel 13 (11.0-15.0) % Plt Count 222 (150-400) K/uL MPV 8.00 (7.40-12.00) fL Neut % (Auto) 48.1 (48.0-80.0) % Lymph % (Auto) 41.8 H (16.0-40.0) % [place] % (Auto) 7.4 (0.0-15.0) % Eos % (Auto) 2.4 (0.0-7.0) % Baso % (Auto) 0.3 (0.0-1.5) % Neut # (Auto) 3.8 (1.4-5.7) K/uL Lymph # (Auto) 3.3 H (0.6-2.4) K/uL [place] # (Auto) 0.6 (0.0-0.8) K/uL Eos # (Auto) 0.2 (0.0-0.7) K/uL Baso # (Auto) 0.0 (0.0-0.1) K/uL Nucleated RBC % 0.0 /100WBC Nucleated RBCs # 0 K/uL Sodium 145 (136-148) mmol/L Potassium 4.6 (3.5-5.1) mmol/L Chloride 111 H (98-107) mmol/L Carbon Dioxide 29.5 (21.0-32.0) mmol/L BUN 11 (7.0-18.0) mg/dL Creatinine 1.0 (0.8-1.3) mg/dL Est Cr Clr Drug Dosing 86.80 mL/min Estimated GFR (MDRD) > 60.0 ml/min Glucose 85 (74-106) mg/dL Calcium 8.0 L (8.5-10.1) mg/dL Total Bilirubin 0.5 (0.2-1.0) mg/dL AST 16 (15-37) IU/L ALT 33 (14-63) IU/L Alkaline Phosphatase 56 (46-116) U/L Total Protein 5.4 L (6.4-8.2) g/dL Albumin 2.9 L (3.4-5.0) g/dL Globulin 2.5 L (2.6-4.0) g/dL Albumin/Globulin Ratio 1.2 (0.9-1.6) Result Diagrams: 10/18/19 06:09 10/18/19 06:09 Sepsis Event Note - Evaluation Sepsis Screening Result: No Definite Risk - Focused Exam Vital Signs: Vital Signs Temp Pulse Resp BP Pulse Ox Pulse Ox 10/17/19 12:00 36.3 C 65 18 119/73 95 10/17/19 10:06 96 10/17/19 08:00 36.4 C 64 18 115/65 94 L 10/17/19 03:58 36.4 C 62 18 108/68 96 Date Exam was Performed: 10/18/19 Time Exam was Performed: 11:27 Consult PN Assessment/Plan (1) Biliary colic symptom SNOMED Code(s): 51097914 Code(s): K80.50 - CALCULUS OF BILE DUCT W/O CHOLANGITIS OR CHOLECYST W/O OBST Current Visit: Yes Problem List Initiated/Reviewed/Updated: Yes Plan: Reviewed the patient's images. His symptoms sound consistent with symptomatic cholelithiasis. The patient and I discussed the pathophysiology of biliary disease. For symptomatic cholelithiasis, treatment is removal of the gallbladder. The patient and I discussed the laparoscopic and open approach to cholecystectomy. Should I be unable to remove the gallbladder safely via the laparoscopic approach I will convert to open. We discussed the expected perioperative course as well as the risks including bleeding infection or damage to surrounding structures. Patient verbalized understanding and wishes to proceed. The patient have clear liquids today and be made nothing by mouth at midnight. Continue IV antibiotics as previously ordered. Please have the patient continue on IV fluids.
[2019-10-17] MEDS: atorvaSTATin 20 MG Tab PO SCH (20:10)
[2019-10-17] MEDS: traZODone 50 MG Tab PO SCH (20:12)
[2019-10-17] MEDS: Nicotine 21 MG/24 Hr Patch TRDERM SCH (21:57)
[2019-10-18] MEDS: oxyCODONE 5 MG Tab PO PRN ×2 (00:38→05:03)
[2019-10-18] MEDS: metroNIDAZOLE/Normal Saline 500 MG in Premix Bag 1 BAG IV SCH ×3 (00:39→11:34)
[2019-10-18] MEDS: Morphine 2 MG/ML Syringe IVPUSH PRN ×4 (01:53→13:21)
[2019-10-18] MEDS: Sodium Chloride 0.9% 1,000 ML IV SCH (05:07)
[2019-10-18 06:53] LABS: BLOOD UREA NITROGEN,BUN 8 mg/dL (7.0-18.0); CARBON DIOXIDE,CO2 30.4 mmol/L (21.0-32.0); CHLORIDE,CL 108 mmol/L (98-107); GLUCOSE RANDOM 87 mg/dL (74-106); POTASSIUM,K 4.4 mmol/L (3.5-5.1); SODIUM,NA 143 mmol/L (136-148)
--- NOTE | 2019-10-18 08:26 | PCM.PN ---
- General Info Date of Service: 10/18/19 Admission Dx/Problem (Free Text): Admission Diagnosis/Problem Admission Diagnosis/Problem biliary colic Subjective Update: Reports RUQ pain continues today. Eager for surgery. No chest pain or SOB. No other concerns currently. Functional Status: Reports: Pain Controlled, Ambulating, Urinating - Review of Systems General: Reports: No Symptoms. Denies: Fatigue, Malaise HEENT: Reports: No Symptoms. Denies: Headaches, Sore Throat, Visual Changes Pulmonary: Reports: No Symptoms. Denies: Shortness of Breath Cardiovascular: Reports: No Symptoms. Denies: Chest Pain Gastrointestinal: Reports: Abdominal Pain (RUQ). Denies: Nausea, Vomiting Genitourinary: Reports: No Symptoms. Denies: Dysuria, Frequency Musculoskeletal: Reports: No Symptoms Skin: Reports: No Symptoms Neurological: Reports: No Symptoms Psychiatric: Reports: No Symptoms - Patient Data Vitals - Most Recent: Last Vital Signs Temp 98.9 F 10/18/19 07:00 Pulse 72 10/18/19 07:00 Resp 16 10/18/19 07:00 BP 141/90 H 10/18/19 07:00 Pulse Ox 95 10/18/19 07:00 Weight - Most Recent: 85.7 kg I&O - Last 24 Hours: Intake & Output 10/17/19 10/18/19 10/18/19 22:59 06:59 14:59 Intake Total 2372 2558 Output Total 500 Balance 1872 2558 Lab Results Last 24 Hours: Laboratory Results - last 24 hr 10/18/19 10/18/19 Range/Units 06:09 06:09 WBC 8.24 (4.0-11.0) K/uL RBC 4.64 (4.50-5.90) M/uL Hgb 15.1 (13.0-17.0) g/dL Hct 43.9 (38.0-50.0) % MCV 94.6 (80.0-98.0) fL MCH 32.5 H (27.0-32.0) pg MCHC 34.4 (31.0-37.0) g/dL RDW Std Deviation 43.8 (28.0-62.0) fl RDW Coeff of Miguel 13 (11.0-15.0) % Plt Count 260 (150-400) K/uL MPV 8.20 (7.40-12.00) fL Neut % (Auto) 52.9 (48.0-80.0) % Lymph % (Auto) 35.0 (16.0-40.0) % [place] % (Auto) 8.1 (0.0-15.0) % Eos % (Auto) 3.6 (0.0-7.0) % Baso % (Auto) 0.4 (0.0-1.5) % Neut # (Auto) 4.4 (1.4-5.7) K/uL Lymph # (Auto) 2.9 H (0.6-2.4) K/uL [place] # (Auto) 0.7 (0.0-0.8) K/uL Eos # (Auto) 0.3 (0.0-0.7) K/uL Baso # (Auto) 0.0 (0.0-0.1) K/uL Nucleated RBC % 0.0 /100WBC Nucleated RBCs # 0 K/uL Sodium 143 (136-148) mmol/L Potassium 4.4 (3.5-5.1) mmol/L Chloride 108 H (98-107) mmol/L Carbon Dioxide 30.4 (21.0-32.0) mmol/L BUN 8 (7.0-18.0) mg/dL Creatinine 1.0 (0.8-1.3) mg/dL Est Cr Clr Drug Dosing 86.80 mL/min Estimated GFR (MDRD) > 60.0 ml/min Glucose 87 (74-106) mg/dL Calcium 8.6 (8.5-10.1) mg/dL Total Bilirubin 0.6 (0.2-1.0) mg/dL AST 21 (15-37) IU/L ALT 40 (14-63) IU/L Alkaline Phosphatase 66 (46-116) U/L Total Protein 6.4 (6.4-8.2) g/dL Albumin 3.7 (3.4-5.0) g/dL Globulin 2.7 (2.6-4.0) g/dL Albumin/Globulin Ratio 1.4 (0.9-1.6) Med Orders - Current: Current Medications Atorvastatin Calcium (Lipitor) 20 mg PO BEDTIME [facility] Last Admin: 10/17/19 20:10 Dose: 20 mg Citalopram Hydrobromide (Celexa) 40 mg PO DAILY [facility] Last Admin: 10/17/19 09:11 Dose: 40 mg Sodium Chloride (Normal Saline) 1,000 mls @ 125 mls/hr IV ASDIRECTED [facility] Last Admin: 10/18/19 05:07 Dose: 125 mls/hr Ciprofloxacin/Dextrose 400 mg/ (Premix) 200 mls @ 200 mls/hr IV Q12H [facility] Last Admin: 10/17/19 22:15 Dose: 200 mls/hr Metronidazole 500 mg/ Premix 100 mls @ 100 mls/hr IV QID [facility] Last Admin: 10/18/19 05:09 Dose: 100 mls/hr Morphine Sulfate (Morphine) 4 mg IVPUSH Q3H PRN PRN Reason: Pain Last Admin: 10/18/19 06:29 Dose: 4 mg Nicotine (Habitrol) 21 mg TRDERM DAILY [facility] Last Admin: 10/17/19 21:57 Dose: 21 mg Ondansetron HCl (Zofran) 4 mg IVPUSH Q4H PRN PRN Reason: Nausea/Vomiting Last Admin: 10/17/19 11:33 Dose: 4 mg Oxycodone HCl (Oxycodone) 5 mg PO Q4H PRN PRN Reason: Pain (moderate 4-6) Last Admin: 10/18/19 05:03 Dose: 5 mg Methylphenidate Hcl ([Ritalin La] 20 Mg) 1 each PO DAILY [facility] Trazodone HCl (Trazodone) 50 mg PO BEDTIME [facility] Last Admin: 10/17/19 20:12 Dose: Not Given Discontinued Medications Hydrocodone Bitart/Acetaminophen ([place] 325-5 Mg) 1 tab PO ONETIME ONE Stop: 10/15/19 21:29 Last Admin: 10/15/19 21:43 Dose: 1 tab Sodium Chloride (Normal Saline) 1,000 mls @ 999 mls/hr IV STAT ONE Stop: 10/15/19 22:55 Last Admin: 10/15/19 22:25 Dose: 999 mls/hr Metronidazole 500 mg/ Premix 100 mls @ 100 mls/hr IV ONETIME ONE Stop: 10/16/19 00:34 Last Admin: 10/15/19 23:40 Dose: 100 mls/hr Iopamidol (Isovue-370 (76%)) 100 ml IVPUSH ONETIME STA Stop: 10/15/19 22:33 Last Admin: 10/15/19 22:46 Dose: 100 ml Ketorolac Tromethamine (Toradol) 30 mg IVPUSH ONETIME ONE Stop: 10/16/19 01:30 Last Admin: 10/16/19 01:42 Dose: 30 mg Morphine Sulfate (Morphine) 6 mg IVPUSH ONETIME ONE Stop: 10/15/19 23:26 Last Admin: 10/15/19 23:35 Dose: 6 mg Morphine Sulfate (Morphine) 6 mg IVPUSH ONETIME ONE Stop: 10/16/19 03:04 Last Admin: 10/16/19 03:14 Dose: 6 mg Morphine Sulfate (Morphine) 2 mg IVPUSH Q3H PRN PRN Reason: Pain Last Admin: 10/17/19 12:35 Dose: 2 mg Morphine Sulfate (Morphine) 2 mg IVPUSH Q3H PRN PRN Reason: Pain (severe 7-10) Stop: 10/17/19 10:06 Nicotine (Habitrol) 21 mg TRDERM ONETIME ONE Stop: 10/16/19 02:52 Last Admin: 10/16/19 03:11 Dose: 21 mg Ondansetron HCl (Zofran Odt) 4 mg PO ONETIME ONE Stop: 10/15/19 21:28 Last Admin: 10/15/19 21:44 Dose: 4 mg Ondansetron HCl (Zofran) 4 mg IVPUSH ONETIME ONE Stop: 10/15/19 23:29 Last Admin: 10/15/19 23:35 Dose: 4 mg - Exam General: Alert, Oriented, Cooperative, No Acute Distress Lungs: Clear to Auscultation, Normal Respiratory Effort Cardiovascular: Regular Rate, Regular Rhythm GI/Abdominal Exam: Normal Bowel Sounds, Soft, Tender Back Exam: Normal Inspection, Full Range of Motion Extremities: Normal Inspection, Normal Range of Motion, Non-Tender, No Pedal Edema Wound/Incisions: Healing Well Neurological: No New Focal Deficit Psy/Mental Status: Alert, Normal Affect, Normal Mood Sepsis Event Note - Evaluation Sepsis Screening Result: No Definite Risk - Focused Exam Vital Signs: Vital Signs Temp Pulse Resp BP Pulse Ox 10/18/19 07:00 98.9 F 72 16 141/90 H 95 10/18/19 04:00 97.3 F 67 16 131/81 94 L 10/17/19 23:00 97.7 F 78 17 128/73 95 Date Exam was Performed: 10/18/19 Time Exam was Performed: 09:36 - Problem List & Annotations (1) Biliary colic symptom SNOMED Code(s): 06998839 Code(s): K80.50 - CALCULUS OF BILE DUCT W/O CHOLANGITIS OR CHOLECYST W/O OBST Status: Acute Current Visit: Yes - Problem List Review Problem List Initiated/Reviewed/Updated: Yes - My Orders Last 24 Hours: My Active Orders 10/17/19 11:31 Notify Provider Consults [RC] ASDIRECTED Consult to Physician [CONS] Routine 10/17/19 16:51 Morphine 4 mg IVPUSH Q3H PRN 10/18/19 09:00 Patient's Own Medication [Ptom] 1 each PO DAILY 10/18/19 Breakfast NPO After Midnight [Nothing per Oral After Midnight Diet] [DIET] - Plan Plan:: 59 yo male admitted for RUQ quadrant pain, concerning for possible acute cholecystitis. 1. RUQ pain, suspected biliary colic - Continue Ciprofloxacin and Flagyl IV, leukocytosis resolved this morning - Dr Muñoz consulted, plan for surgery today, has been NPO after midnight. - Continue IVFs while NPO Diet: NPO VTE prophylaxis: SCDs Consults: Dr Muñoz CODE Status: Full Code Disposition: 2 days
[2019-10-18] MEDS: Nicotine 21 MG/24 Hr Patch TRDERM SCH ×2 (08:44→20:35)
[2019-10-18] MEDS: Citalopram 20 MG Tab PO SCH (08:44)
[2019-10-18] MEDS: METHYLPHENIDATE HCL 20 MG PO SCH (08:45)
[2019-10-18] MEDS: Ciprofloxacin in D5W 400 MG in Premix Bag 1 BAG IV SCH ×2 (09:48)
--- NOTE | 2019-10-18 11:23 | PCM.PREANE ---
Preanesthetic Assessment - Anesthesia/Transfusion/Family Hx Anesthesia History: Prior Anesthesia Without Reaction Family History of Anesthesia Reaction: No Transfusion History: No Prior Transfusion(s) - Review of Systems General: No Symptoms Pulmonary: No Symptoms Cardiovascular: No Symptoms Gastrointestinal: Abdominal Pain Neurological: No Symptoms Other: Reports: None - Physical Assessment NPO Status Date: 10/17/19 Vital Signs: Last Vital Signs Temp 98.6 F 10/18/19 10:49 Pulse 63 10/18/19 10:49 Resp 14 10/18/19 10:49 BP 128/83 10/18/19 10:49 Pulse Ox 93 L 10/18/19 10:49 Height: 5 ft 11 in Weight: 85.7 kg ASA Class: 2 Mental Status: Alert & Oriented x3 Airway Class: Mallampati = 2 Dentition: Reports: Missing Tooth/Teeth ROM/Head Extension: Full Lungs: Clear to Auscultation, Normal Respiratory Effort Cardiovascular: Regular Rate, Regular Rhythm - Lab Values: Laboratory Last Values WBC 8.24 K/uL (4.0-11.0) 10/18/19 06:09 RBC 4.64 M/uL (4.50-5.90) 10/18/19 06:09 Hgb 15.1 g/dL (13.0-17.0) 10/18/19 06:09 Hct 43.9 % (38.0-50.0) 10/18/19 06:09 MCV 94.6 fL (80.0-98.0) 10/18/19 06:09 MCH 32.5 pg (27.0-32.0) H 10/18/19 06:09 MCHC 34.4 g/dL (31.0-37.0) 10/18/19 06:09 RDW Std Deviation 43.8 fl (28.0-62.0) 10/18/19 06:09 RDW Coeff of Miguel 13 % (11.0-15.0) 10/18/19 06:09 Plt Count 260 K/uL (150-400) 10/18/19 06:09 MPV 8.20 fL (7.40-12.00) 10/18/19 06:09 Neut % (Auto) 52.9 % (48.0-80.0) 10/18/19 06:09 Lymph % (Auto) 35.0 % (16.0-40.0) 10/18/19 06:09 [place] % (Auto) 8.1 % (0.0-15.0) 10/18/19 06:09 Eos % (Auto) 3.6 % (0.0-7.0) 10/18/19 06:09 Baso % (Auto) 0.4 % (0.0-1.5) 10/18/19 06:09 Neut # (Auto) 4.4 K/uL (1.4-5.7) 10/18/19 06:09 Lymph # (Auto) 2.9 K/uL (0.6-2.4) H 10/18/19 06:09 [place] # (Auto) 0.7 K/uL (0.0-0.8) 10/18/19 06:09 Eos # (Auto) 0.3 K/uL (0.0-0.7) 10/18/19 06:09 Baso # (Auto) 0.0 K/uL (0.0-0.1) 10/18/19 06:09 Nucleated RBC % 0.0 /100WBC 10/18/19 06:09 Nucleated RBCs # 0 K/uL 10/18/19 06:09 Sodium 143 mmol/L (136-148) 10/18/19 06:09 Potassium 4.4 mmol/L (3.5-5.1) 10/18/19 06:09 Chloride 108 mmol/L (98-107) H 10/18/19 06:09 Carbon Dioxide 30.4 mmol/L (21.0-32.0) 10/18/19 06:09 BUN 8 mg/dL (7.0-18.0) 10/18/19 06:09 Creatinine 1.0 mg/dL (0.8-1.3) 10/18/19 06:09 Est Cr Clr Drug Dosing 86.80 mL/min 10/18/19 06:09 Estimated GFR (MDRD) > 60.0 ml/min 10/18/19 06:09 Glucose 87 mg/dL (74-106) 10/18/19 06:09 Calcium 8.6 mg/dL (8.5-10.1) 10/18/19 06:09 Total Bilirubin 0.6 mg/dL (0.2-1.0) 10/18/19 06:09 AST 21 IU/L (15-37) 10/18/19 06:09 ALT 40 IU/L (14-63) 10/18/19 06:09 Alkaline Phosphatase 66 U/L (46-116) 10/18/19 06:09 Total Protein 6.4 g/dL (6.4-8.2) 10/18/19 06:09 Albumin 3.7 g/dL (3.4-5.0) 10/18/19 06:09 Globulin 2.7 g/dL (2.6-4.0) 10/18/19 06:09 Albumin/Globulin Ratio 1.4 (0.9-1.6) 10/18/19 06:09 Lipase 371 U/L (73-393) 10/15/19 21:40 Urine Color YELLOW 10/15/19 21:28 Urine Appearance CLEAR 10/15/19 21:28 Urine pH 6.5 (5.0-8.0) 10/15/19 21:28 Ur Specific [place] 1.015 (1.001-1.035) 10/15/19 21:28 Urine Protein NEGATIVE mg/dL (NEGATIVE) 10/15/19 21:28 Urine Glucose (UA) NEGATIVE mg/dL (NEGATIVE) 10/15/19 21:28 Urine Ketones NEGATIVE mg/dL (NEGATIVE) 10/15/19 21:28 Urine Occult Blood NEGATIVE (NEGATIVE) 10/15/19 21:28 Urine Nitrite NEGATIVE (NEGATIVE) 10/15/19 21:28 Urine Bilirubin NEGATIVE (NEGATIVE) 10/15/19 21:28 Urine Urobilinogen 0.2 EU/dL (<2.0) 10/15/19 21:28 Ur Leukocyte Esterase NEGATIVE (NEGATIVE) 10/15/19 21:28 - Allergies Allergies/Adverse Reactions: Allergies Allergy/AdvReac Type Severity Reaction Status Date / Time Sulfa (Sulfonamide Allergy Hives Verified 10/17/19 19:08 Antibiotics) tetracycline Allergy Other Verified 10/17/19 19:08 - Blood Blood Available: Yes - Anesthesia Plan Pre-Op Medication Ordered: None Beta James: Atenolol - Acknowledgements Anesthesia Type Planned: General Anesthesia Pt an Appropriate Candidate for the Planned Anesthesia: Yes Alternatives and Risks of Anesthesia Discussed w Pt/Guardian: Yes Pt/Guardian Understands and Agrees with Anesthesia Plan: Yes Additional Comments: PMH: adhd, smoker, anxiety, hx hepc with spont cure, ptsd, in hosp meds: cipro, flagyl, morphine, zofran PLAN: GET PreAnesthesia Questionnaire HEENT History: Reports: None Cardiovascular History: Reports: High Cholesterol Respiratory History: Reports: None Gastrointestinal History: Reports: Hepatitis, Hiatal Hernia, Other (See Below) Other Gastrointestinal History: Gall bladder "sludge". Hepatitis C with spontaneous cured Genitourinary History: Reports: None Musculoskeletal History: Reports: None Neurological History: Reports: None Psychiatric History: Reports: ADHD, Depression, PTSD Endocrine/Metabolic History: Reports: None Hematologic History: Reports: None Immunologic History: Reports: None Oncologic (Cancer) History: Reports: None Dermatologic History: Reports: None - Infectious Disease History Infectious Disease History: Reports: Hepatitis C - Past Surgical History Head Surgeries/Procedures: Reports: None GI Surgical History: Reports: Hernia Repair/Other - SUBSTANCE USE Smoking Status *Q: Current Every Day Smoker Tobacco Use Within Last Twelve Months: Cigarettes Recreational Drug Use History: No - HOME MEDS Home Medications: Home Meds atorvaSTATin [Lipitor] 20 mg PO BEDTIME 10/15/19 [History] traZODone HCl [Trazodone HCl] 50 mg PO BEDTIME 10/15/19 [History] Citalopram Hydrobromide [Celexa] 40 mg PO DAILY 10/16/19 [History] Methylphenidate HCl [Ritalin LA] 20 mg PO DAILY 10/16/19 [History] - CURRENT (IN HOUSE) MEDS Current Meds: Current Medications Atorvastatin Calcium (Lipitor) 20 mg PO BEDTIME [facility] Last Admin: 10/17/19 20:10 Dose: 20 mg Citalopram Hydrobromide (Celexa) 40 mg PO DAILY [facility] Last Admin: 10/18/19 08:44 Dose: Not Given Sodium Chloride (Normal Saline) 1,000 mls @ 125 mls/hr IV ASDIRECTED [facility] Last Admin: 10/18/19 05:07 Dose: 125 mls/hr Ciprofloxacin/Dextrose 400 mg/ (Premix) 200 mls @ 200 mls/hr IV Q12H [facility] Last Admin: 10/18/19 09:48 Dose: 200 mls/hr Metronidazole 500 mg/ Premix 100 mls @ 100 mls/hr IV QID [facility] Last Admin: 10/18/19 05:09 Dose: 100 mls/hr Morphine Sulfate (Morphine) 4 mg IVPUSH Q3H PRN PRN Reason: Pain Last Admin: 10/18/19 09:49 Dose: 4 mg Nicotine (Habitrol) 21 mg TRDERM DAILY [facility] Last Admin: 10/18/19 08:44 Dose: Not Given Ondansetron HCl (Zofran) 4 mg IVPUSH Q4H PRN PRN Reason: Nausea/Vomiting Last Admin: 10/17/19 11:33 Dose: 4 mg Oxycodone HCl (Oxycodone) 5 mg PO Q4H PRN PRN Reason: Pain (moderate 4-6) Last Admin: 10/18/19 05:03 Dose: 5 mg Methylphenidate Hcl ([Ritalin La] 20 Mg) 1 each PO DAILY [facility] Last Admin: 10/18/19 08:45 Dose: Not Given Trazodone HCl (Trazodone) 50 mg PO BEDTIME [facility] Last Admin: 10/17/19 20:12 Dose: Not Given Discontinued Medications Hydrocodone Bitart/Acetaminophen (Two Dot 325-5 Mg) 1 tab PO ONETIME ONE Stop: 10/15/19 21:29 Last Admin: 10/15/19 21:43 Dose: 1 tab Sodium Chloride (Normal Saline) 1,000 mls @ 999 mls/hr IV STAT ONE Stop: 10/15/19 22:55 Last Admin: 10/15/19 22:25 Dose: 999 mls/hr Metronidazole 500 mg/ Premix 100 mls @ 100 mls/hr IV ONETIME ONE Stop: 10/16/19 00:34 Last Admin: 10/15/19 23:40 Dose: 100 mls/hr Iopamidol (Isovue-370 (76%)) 100 ml IVPUSH ONETIME STA Stop: 10/15/19 22:33 Last Admin: 10/15/19 22:46 Dose: 100 ml Ketorolac Tromethamine (Toradol) 30 mg IVPUSH ONETIME ONE Stop: 10/16/19 01:30 Last Admin: 10/16/19 01:42 Dose: 30 mg Morphine Sulfate (Morphine) 6 mg IVPUSH ONETIME ONE Stop: 10/15/19 23:26 Last Admin: 10/15/19 23:35 Dose: 6 mg Morphine Sulfate (Morphine) 6 mg IVPUSH ONETIME ONE Stop: 10/16/19 03:04 Last Admin: 10/16/19 03:14 Dose: 6 mg Morphine Sulfate (Morphine) 2 mg IVPUSH Q3H PRN PRN Reason: Pain Last Admin: 10/17/19 12:35 Dose: 2 mg Morphine Sulfate (Morphine) 2 mg IVPUSH Q3H PRN PRN Reason: Pain (severe 7-10) Stop: 10/17/19 10:06 Nicotine (Habitrol) 21 mg TRDERM ONETIME ONE Stop: 10/16/19 02:52 Last Admin: 10/16/19 03:11 Dose: 21 mg Ondansetron HCl (Zofran Odt) 4 mg PO ONETIME ONE Stop: 10/15/19 21:28 Last Admin: 10/15/19 21:44 Dose: 4 mg Ondansetron HCl (Zofran) 4 mg IVPUSH ONETIME ONE Stop: 10/15/19 23:29 Last Admin: 10/15/19 23:35 Dose: 4 mg
[2019-10-18] MEDS ORDERED: Midazolam 1 MG/ML 2 ML SDV ONE (12:46)
[2019-10-18] MEDS ORDERED: Ondansetron 4 MG/2 ML SDV ONE (12:46)
[2019-10-18] MEDS ORDERED: fentaNYL 100 MCG/2 ML SDV ONE (12:46)
[2019-10-18] MEDS ORDERED: Propofol 200 MG/20 ML SDV ONE (12:46)
[2019-10-18] MEDS ORDERED: Rocuronium 100 MG/10 ML Syringe ONE (12:47)
[2019-10-18] MEDS ORDERED: Ketorolac 30 MG/ML SDV ONE (12:47)
[2019-10-18] MEDS ORDERED: HYDROmorphone 2 MG/ML Syringe ONE (12:48)
[2019-10-18] MEDS ORDERED: Sugammadex Sodium 200 MG/2 ML VIAL ONE (14:15)
[2019-10-18] MEDS ORDERED: Bupivacaine 0.5% 30 ML SDV ONE (14:17)
[2019-10-18] MEDS ORDERED: HYDROmorphone 2 MG/ML Syringe IVPUSH ONE (15:37)
[2019-10-18] MEDS ORDERED: Cyclobenzaprine 5 MG Tab PO PRN (16:22)
--- NOTE | 2019-10-18 16:24 | PCM.OPNOTE ---
- General Post-Op/Procedure Note Date of Surgery/Procedure: 10/18/19 Operative Procedure(s): Umbilical hernia repair, laparoscopic cholecystectomy Findings: 4mm recurrent umbilical hernia, reducible. Distended gallbladder with omental adhesions Pre Op Diagnosis: Recurrent umbilical hernia, biliary colic Post-Op Diagnosis: same Anesthesia Technique: General ET Tube Primary Surgeon: Rocio Muñoz Fluid Replacement, Intraop: 1,200 Output, Urine Amount: 300 EBL in mLs: 10 Condition: Stable Free Text/Narrative:: Intake & Output 10/18/19 10/18/19 10/18/19 06:59 14:59 22:59 Intake Total 2558 300 Balance 2558 300
--- NOTE | 2019-10-18 16:49 | PCM.POSTAN ---
POST ANESTHESIA ASSESSMENT - MENTAL STATUS Mental Status: Alert, Oriented - VITAL SIGNS Vital Signs: Last Vital Signs Temp 97.7 F 10/18/19 16:25 Pulse 74 10/18/19 16:45 Resp 12 10/18/19 16:45 BP 123/72 10/18/19 16:45 Pulse Ox 98 10/18/19 16:45 - RESPIRATORY Respiratory Status: Respiratory Rate WNL, Airway Patent, O2 Saturation Stable - CARDIOVASCULAR CV Status: Pulse Rate WNL, Blood Pressure Stable - GASTROINTESTINAL GI Status: No Symptoms - PAIN Pain Score: 1 - POST OP HYDRATION Hydration Status: Adequate & Stable
--- NOTE | 2019-10-18 17:26 | OR ---
SURGEON: ROCIO GARZON MD DATE OF PROCEDURE: 10/18/2019 PREOPERATIVE DIAGNOSES: 1. Umbilical hernia, reducible. 2. Biliary sludge, biliary colic. POSTOPERATIVE DIAGNOSES: 1. Umbilical hernia, reducible. 2. Biliary sludge, biliary colic. PROCEDURES PERFORMED: Umbilical hernia repair, laparoscopic cholecystectomy. PRIMARY SURGEON: Rocio Garzon MD. ASPHALT DAUBER: assistant plant controller: Dr. John Rahman, residential treatment specialist. FLUIDS: 1200 mL of crystalloid. ESTIMATED BLOOD LOSS: 10 mL. URINE OUTPUT: 300 mL. FINDINGS: Gallbladder with omental adhesions. A 4 mm supraumbilical recurrent hernia. COMPLICATIONS: None. INDICATIONS: The patient is a 59-year-old male who presented to the emergency room two nights ago with severe right upper quadrant pain. He had been previously diagnosed with biliary sludge associated with biliary colic and was told to have his gallbladder removed. The patient had a mild leukocytosis and CT scan was grossly normal, however, his pain was unable to be controlled in the ER. He was admitted to the Medicine team. He was placed on IV antibiotics, IV fluids, and kept n.p.o. By the next day, his pain was under better control and his white count had come down. An ultrasound showed gallbladder sludge versus a polyp. Given these findings, the decision was made to proceed with a laparoscopic, possible open, cholecystectomy. On my physical exam, I noted the patient to have a previous periumbilical scar. The patient stated that he had had a previous umbilical hernia repair. I reviewed his CT scan and noted there to be a recurrent umbilical hernia just above the umbilicus. We discussed repairing this at the same time I perform my laparoscopic cholecystectomy given that I would be making an incision around this area anyway. I explained both procedures as well as their expected perioperative course. We discussed the possible risks including bleeding, infection, or damage to surrounding structures. Upon close inspection, I did not see any mesh on the CT scan. I discussed a suture repair of his umbilical hernia repair. After a long discussion of both of the procedures, the patient verbalized understanding and wishes to proceed. PROCEDURE IN DETAIL: The patient was brought into the OR and placed on the OR table in supine position. A time-out was completed verifying the patient's name, age, date of , allergies, and procedure to be performed. General endotracheal anesthesia was induced. The left arm was tucked to the patient's side and a Silvestre catheter placed. The abdomen was prepped and draped in usual standard fashion. I palpated along the umbilicus, I could feel a reducible hernia just above the umbilical stalk. I anesthetized the supraumbilical fold with 0.5% Marcaine plain. A 15 blade was used to make a curvilinear incision along the supraumbilical fold. Using cautery, I dissected to the level of subcutaneous fat. I then used Metzenbaum scissors and dissected out a small friable hernia sac containing preperitoneal fat. Once this was cleared away from all the surrounding tissues, I was able to reduce it easily into the abdomen. The recurrent hernia defect was 4 mm in size. I extended the opening using curved Fritz scissors. I carried this vertically to open it up to allow passage of my 12 mm Marcie trocar. The peritoneum was identified. This was elevated with hemostats and incised sharply with the Metzenbaum scissors. Entry into the abdomen was palpated digitally. I did not feel any mesh in the periumbilical area, but I did note an old Ethibond suture in the fascia. This confirmed my suspicion that the umbilical hernia had previously been repaired with sutures. A 12 mm Marcie trocar was inserted in the abdomen and the abdomen insufflated. I placed a 5 mm 30-degree scope down the port and inspected the area underneath my initial trocar placement. No damage to surrounding structures was noted. The patient was placed into reverse Trendelenburg position and airplaned slightly to the left. 5 mm trocars placed in the following locations under direct visualization; one in the epigastric area, one in the right flank, and one 2 fingerbreadths below the right subcostal margin in the midclavicular line. The gallbladder appeared distended. In order to better manipulate the gallbladder, I decided to decompress it. An aspirating needle was placed through my right flank port and inserted on the dome of the gallbladder. I aspirated 80 mL of dark green bilious material. I then removed the aspirating needle and grasped the dome of the gallbladder with an atraumatic grasper and elevated it cranially. The proximal body of the gallbladder had omental adhesions along it. I took these down using hook cautery and blunt dissection. Once my infundibulum was freed from its omental attachments, I then began to dissect along the cystic duct and cystic artery. Using blunt dissection, suction, and hook cautery, I was able to take down all the attachments around these structures. I then cleared away the proximal one-third of the cystic plate. I identified the node of [place] lying between the cystic duct and artery. Once my critical view was achieved, I doubly clipped and ligated my cystic duct and artery. I then removed the gallbladder from the remainder of its attachments along the gallbladder fossa using electrocautery. Once the gallbladder was removed, I placed it in an Endo Catch bag and removed it through the supraumbilical port site. With my camera turned around, I took a picture of the patient's fascia along the umbilicus. I then placed my 12 mm Marcie trocar back through my hernia defect and inspected my operative field. The clips appeared to be in good position and there was no evidence of bile leak. I irrigated the abdomen with 1 L of normal saline and suctioned this out. The 5 mm trocars were removed under direct visualization and the abdomen allowed to desufflate. I removed my 12 mm Marcie trocar as well. I then closed my hernia defect in vertical fashion using interrupted 0 Ethibond sutures. I closed the subcutaneous fat layer with an interrupted 3-0 Vicryl suture. The skin was closed with a running 4-0 Monocryl stitch. My 5 mm trocar sites were closed with interrupted 4-0 Monocryl suture. Steri-Strips and sterile dressings were applied. The patient tolerated the procedure well and was transferred to the PACU in stable condition. All counts were complete and correct at the end of the case. TROY / RADHA /[id number]
[2019-10-18] MEDS: Acetaminophen/HYDROcodone 325-5 MG Tab PO PRN ×2 (18:34→22:36)
[2019-10-18] MEDS: atorvaSTATin 20 MG Tab PO SCH (20:27)
[2019-10-18] MEDS: traZODone 50 MG Tab PO SCH (20:28)
[2019-10-18] MEDS: HYDROmorphone 1 MG/ML Syringe IVPUSH PRN ×2 (20:29→22:02)
[2019-10-18] MEDS: Carboxymethylcellulose Sodium 0.5% Ophth Soln 0.4 ML UD Box of 30 EYEBOTH PRN ×2 (22:23→22:29)
[2019-10-19] MEDS: HYDROmorphone 1 MG/ML Syringe IVPUSH PRN ×3 (00:45→08:37)
[2019-10-19] MEDS: Acetaminophen/HYDROcodone 325-5 MG Tab PO PRN ×2 (03:06→07:19)
--- NOTE | 2019-10-19 08:56 | PCM.DCSUM1 ---
Discharge Summary - Hospital Course Brief History: 59 yo male who presents with one day history of right upper quadrant pain. He reports associate symptoms of nausea and vomiting. He denies any fevers or chills. The last time he had symptoms like this he was driving home but had to stop in [place] where it took several days to resolve. He reports following up in [facility] were he was told he had sludge in his gallbladder and was advised to have a cholecystectomy. Diagnosis: Stroke: No - Discharge Data Discharge Date: 10/19/19 Discharge Disposition: Home, Self-Care 01 Condition: Stable - Referral to Home Health Primary Care Physician: PCP None - Discharge Diagnosis/Problem(s) (1) Biliary colic symptom SNOMED Code(s): 62069682 ICD Code: K80.50 - CALCULUS OF BILE DUCT W/O CHOLANGITIS OR CHOLECYST W/O OBST Status: Acute Current Visit: Yes - Patient Summary/Data Operative Procedure(s) Performed: Umbilical hernia repair, laparoscopic cholecystectomy Consults: Consultations 10/17/19 11:31 Consult to Physician [CONS] Routine - Patient Instructions Diet: Regular Diet as Tolerated Activity: No Lifting Over 20 Pounds (for six weeks ), Rest and Relax Today Driving: Do Not Drive (for one week or while taking narcotics ) Driving, Other: No work for 2 weeks Showering/Bathing: No Showering (for 2 days after surgery), No Tub Bathing/ Swimming (for 2 weeks after surgery ) Notify Provider of: Fever, Increased Pain, Swelling and Redness, Drainage, Nausea and/or Vomiting - Discharge Plan *PRESCRIPTION DRUG MONITORING PROGRAM REVIEWED*: Not Applicable *COPY OF PRESCRIPTION DRUG MONITORING REPORT IN PATIENT HEENA: Not Applicable Prescriptions/Med Rec: Docusate Sodium [Colace] 100 mg PO BID PRN #30 cap PRN Reason: Constipation polyethylene glycoL 3350 [MiraLAX] 17 gm PO DAILY PRN #1 bottle PRN Reason: Constipation Home Medications: Home Meds atorvaSTATin [Lipitor] 20 mg PO BEDTIME 10/15/19 [History] traZODone HCl [Trazodone HCl] 50 mg PO BEDTIME 10/15/19 [History] Citalopram Hydrobromide [Celexa] 40 mg PO DAILY 10/16/19 [History] Methylphenidate HCl [Ritalin LA] 20 mg PO DAILY 10/16/19 [History] Acetaminophen/HYDROcodone [[place] 325-5 MG] 2 tab PO Q4H PRN tablet 10/19/19 [Rx ] Docusate Sodium [Colace] 100 mg PO BID PRN #30 cap 10/19/19 [Rx] polyethylene glycoL 3350 [MiraLAX] 17 gm PO DAILY PRN #1 bottle 10/19/19 [Rx] Oxygen Therapy Mode: Room Air Patient Handouts: Acetaminophen; Hydrocodone tablets or capsules, Cholelithiasis, [id number], Cholecystitis, [id number], Docusate capsules, Polyethylene Glycol powder Referrals: Rocio Muñoz MD [Physician] - 10/28/19 11:00 am Lynette Vásquez PA [Physician [employer]] - 10/24/19 1:30 pm - Discharge Summary/Plan Comment DC Time >30 min.: No Discharge Summary/Plan Comment: Admitting Diagnoses: RUQ pain Biliary colic Discharge Diagnoses: RUQ pain Biliary colic Other PMH: Tobacco abuse ADHD HLD Hx Hep C Donal was admitted and treated initially with Ciprofloxacin and Flagyl. Adb/ pelvis CT WNL. RUQ US obtained and Dr Muñoz consulted. Decision was made for cholecystectomy. He went to OR yesterday, today he is feeling well. Antibiotics stopped after surgery yesterday, no acute cholecystitis noted. Mild RUQ and R shoulder pain today, Tolerating diet well. Passing flatus. Encouraged to keep ambulating and monitor stools He is eager to go home. He will follow up with PCP and Dr Muñoz. Dr Muñoz ordered pain medications for home use and activity limitations provided. He is to return to ED or clinic sooner if concerns should arise. - Patient Data Vitals - Most Recent: Last Vital Signs Temp 97.9 F 10/19/19 07:57 Pulse 68 10/19/19 07:57 Resp 16 10/19/19 07:57 BP 143/79 H 10/19/19 07:57 Pulse Ox 94 L 10/19/19 07:57 Weight - Most Recent: 85.7 kg I&O - Last 24 hours: Intake & Output 10/18/19 10/19/19 10/19/19 22:59 06:59 14:59 Intake Total 3480 1630 Output Total 1250 1400 Balance 2230 230 Med Orders - Current: Current Medications Hydrocodone Bitart/Acetaminophen ([place] 325-5 Mg) 2 tab PO Q4H PRN PRN Reason: Pain (mild 1-3) Last Admin: 10/19/19 07:19 Dose: 2 tab Artificial Tears (Refresh Plus 0.5%) 0 each EYEBOTH ASDIRECTED PRN PRN Reason: Dry Eyes Last Admin: 10/18/19 22:29 Dose: 30 each Atorvastatin Calcium (Lipitor) 20 mg PO BEDTIME [facility] Last Admin: 10/18/19 20:27 Dose: 20 mg Citalopram Hydrobromide (Celexa) 40 mg PO DAILY [facility] Last Admin: 10/18/19 08:44 Dose: Not Given Cyclobenzaprine HCl (Flexeril) 5 mg PO BID PRN PRN Reason: Muscle Spasm Hydromorphone HCl (Dilaudid) 0.5 mg IVPUSH Q1H PRN PRN Reason: Pain (severe 7-10) Last Admin: 10/19/19 08:37 Dose: 0.5 mg Nicotine (Habitrol) 21 mg TRDERM DAILY [facility] Last Admin: 10/18/19 20:35 Dose: 21 mg Ondansetron HCl (Zofran) 4 mg IVPUSH Q4H PRN PRN Reason: Nausea/Vomiting Last Admin: 10/17/19 11:33 Dose: 4 mg Methylphenidate Hcl ([Ritalin La] 20 Mg) 1 each PO DAILY [facility] Last Admin: 10/18/19 08:45 Dose: Not Given Trazodone HCl (Trazodone) 50 mg PO BEDTIME [facility] Last Admin: 10/18/19 20:28 Dose: Not Given Discontinued Medications Hydrocodone Bitart/Acetaminophen ([place] 325-5 Mg) 1 tab PO ONETIME ONE Stop: 10/15/19 21:29 Last Admin: 10/15/19 21:43 Dose: 1 tab Bupivacaine HCl (Marcaine 0.5%) Confirm Administered Dose 30 ml .ROUTE .STK-MED ONE Stop: 10/18/19 14:18 Fentanyl (Sublimaze) Confirm Administered Dose 200 mcg .ROUTE .STK-MED ONE Stop: 10/18/19 12:47 Hydromorphone HCl (Dilaudid) Confirm Administered Dose 2 mg .ROUTE .STK-MED ONE Stop: 10/18/19 12:49 Hydromorphone HCl (Dilaudid) 1 mg IVPUSH ONETIME ONE Stop: 10/18/19 15:38 Last Admin: 10/18/19 17:20 Dose: Not Given Sodium Chloride (Normal Saline) 1,000 mls @ 999 mls/hr IV STAT ONE Stop: 10/15/19 22:55 Last Admin: 10/15/19 22:25 Dose: 999 mls/hr Metronidazole 500 mg/ Premix 100 mls @ 100 mls/hr IV ONETIME ONE Stop: 10/16/19 00:34 Last Admin: 10/15/19 23:40 Dose: 100 mls/hr Sodium Chloride (Normal Saline) 1,000 mls @ 125 mls/hr IV ASDIRECTED [facility] Last Admin: 10/18/19 05:07 Dose: 125 mls/hr Ciprofloxacin/Dextrose 400 mg/ (Premix) 200 mls @ 200 mls/hr IV Q12H [facility] Last Admin: 10/18/19 09:48 Dose: 200 mls/hr Metronidazole 500 mg/ Premix 100 mls @ 100 mls/hr IV QID [facility] Last Admin: 10/18/19 11:34 Dose: 100 mls/hr Acetaminophen (Ofirmev) Confirm Administered Dose 100 mls @ as directed .ROUTE .STK-MED ONE Stop: 10/18/19 14:16 Iopamidol (Isovue-370 (76%)) 100 ml IVPUSH ONETIME STA Stop: 10/15/19 22:33 Last Admin: 10/15/19 22:46 Dose: 100 ml Ketorolac Tromethamine (Toradol) 30 mg IVPUSH ONETIME ONE Stop: 10/16/19 01:30 Last Admin: 10/16/19 01:42 Dose: 30 mg Ketorolac Tromethamine (Toradol) Confirm Administered Dose 30 mg .ROUTE .STK- MED ONE Stop: 10/18/19 12:48 Midazolam HCl (Versed 1 Mg/Ml) Confirm Administered Dose 2 mg .ROUTE .STK-MED ONE Stop: 10/18/19 12:47 Morphine Sulfate (Morphine) 6 mg IVPUSH ONETIME ONE Stop: 10/15/19 23:26 Last Admin: 10/15/19 23:35 Dose: 6 mg Morphine Sulfate (Morphine) 6 mg IVPUSH ONETIME ONE Stop: 10/16/19 03:04 Last Admin: 10/16/19 03:14 Dose: 6 mg Morphine Sulfate (Morphine) 2 mg IVPUSH Q3H PRN PRN Reason: Pain Last Admin: 10/17/19 12:35 Dose: 2 mg Morphine Sulfate (Morphine) 2 mg IVPUSH Q3H PRN PRN Reason: Pain (severe 7-10) Stop: 10/17/19 10:06 Morphine Sulfate (Morphine) 4 mg IVPUSH Q3H PRN PRN Reason: Pain Last Admin: 10/18/19 13:21 Dose: 4 mg Nicotine (Habitrol) 21 mg TRDERM ONETIME ONE Stop: 10/16/19 02:52 Last Admin: 10/16/19 03:11 Dose: 21 mg Ondansetron HCl (Zofran Odt) 4 mg PO ONETIME ONE Stop: 10/15/19 21:28 Last Admin: 10/15/19 21:44 Dose: 4 mg Ondansetron HCl (Zofran) 4 mg IVPUSH ONETIME ONE Stop: 10/15/19 23:29 Last Admin: 10/15/19 23:35 Dose: 4 mg Ondansetron HCl (Zofran) Confirm Administered Dose 4 mg .ROUTE .STK-MED ONE Stop: 10/18/19 12:47 Oxycodone HCl (Oxycodone) 5 mg PO Q4H PRN PRN Reason: Pain (moderate 4-6) Last Admin: 10/18/19 05:03 Dose: 5 mg Propofol (Diprivan 20 Ml) Confirm Administered Dose 400 mg .ROUTE .STK-MED ONE Stop: 10/18/19 12:47 Rocuronium [place] (Zemuron) Confirm Administered Dose 100 mg .ROUTE .STK-MED ONE Stop: 10/18/19 12:48 Sugammadex Sodium ([place]ridion) Confirm Administered Dose 200 mg .ROUTE .STK-MED ONE Stop: 10/18/19 14:16
[2019-10-19] MEDS: Nicotine 21 MG/24 Hr Patch TRDERM SCH (09:03)
[2019-10-19] MEDS: Citalopram 20 MG Tab PO SCH (09:04)
[2019-10-19] MEDS: METHYLPHENIDATE HCL 20 MG PO SCH (09:05)
--- NOTE | 2019-10-21 13:52 | PCM.SN ---
- Free Text/Narrative Note: Patient was examined on postop day #1. His vital signs were stable overnight. His pain was well-controlled on oral Simpson tabs. He is tolerating a diet. He is ambulating the hallways without difficulty.on physical exam he appears comfortable. Normal respiratory effort and regular heart rate. Abdomen is flat soft and nontender. Dressings are clean dry and intact other than a small amount of scant drainage. The patient can be discharged home from a surgical standpoint. Will follow-up in clinic in 2 weeks. DC home with 30 tablets of Simpson as needed for pain control. One week no work. One week no driving. 4 weeks total no lifting greater than 20 pounds. Discharge recommendations have been placed in the discharge order set.
== END 2019-10-19 09:30 | disposition home or self-care (01) ==
LOC: MW.ED 21:13 → MW.MS 10-16 03:04
PROVIDERS: ADMIT Internal Medicine; ATTEND Internal Medicine
DX: K81.1 Chronic cholecystitis (principal); K42.9 Umbilical hernia without obstruction or gangrene; E78.00 Pure hypercholesterolemia, unspecified; E78.5 Hyperlipidemia, unspecified; F32.9 Major depressive disorder, single episode, unspecified; F90.9 Attention-deficit hyperactivity disorder, unspecified type; F43.10 Post-traumatic stress disorder, unspecified; F17.200 Nicotine dependence, unspecified, uncomplicated; Z88.2 Allergy status to sulfonamides; Z88.1 Allergy status to other antibiotic agents
CPT/HCPCS: 36415; 47562; 49585; 74177; 76705; 80053; 81003; 83690; 85025; 88304; A9270; J0131; J0744; J1170; J1885; J2250; J2270; J2405; J2704; J3010; J3490; J7030; Q9967; 99283